=== PATIENT | male | born 1970 | race Caucasian/White ===

== ENCOUNTER 2025-02-22 02:57 | Inpatient (IN) | payer OTHER, SELFPAY ==
[2025-02-21 20:35] VITALS: BP 134/71; BMI 25.5
--- NOTE | 2025-02-21 21:00 | ED.GENMED ---
History of Present Illness
<Atif Xiong PA-C - Last Filed: 02/22/25 01:01>
General
Chief Complaint: Breathing Problem
Source: patient and records
Time Seen by Provider: 02/21/25 20:33
History of Present Illness
History of Present Illness:
54-year-old male with past medical history of substance abuse and anxiety presenting to the ER with correctional officers for evaluation of a multitude of concerns including questionable fevers, cough, back pain, altered mental status/confusion,
lethargy and generalized weakness with symptoms potentially starting within the last 24 to 48 hours. Patient very difficult to obtain history from, continuously stating his back hurts and he would like some water to drink. Records from the [facility]
show that patient had a chest x-ray done today which showed a questionable left-sided pneumonia. It also notes that patient was found laying in the cell, feces all around him and refusing to get out of bed due to the weakness. It was also noted in
the patient's record that he has a history of heroin abuse, patient denies IV drug abuse but records state patient does have a history of this. Last use was reportedly 2 days ago based off of the record, patient stating that 1 year ago.
Past History
<Atif Xiong PA-C - Last Filed: 02/22/25 01:01>
Past History
ED Past Medical History: Psychiatric and Other (Kidney stones)
ED Past Surgical History: None
Social History
Tobacco: Former smoker
Alcohol: None
Drug: Narcotics and IVDA
Personal: Single
Living: [facility]
Review of Systems
<Atif Xiong PA-C - Last Filed: 02/22/25 01:01>
Review of Systems
All Other Systems: ROS reviewed and negative except as documented in HPI and ROS
Phy Exam
<Atif Xiong PA-C - Last Filed: 02/22/25 01:01>
Physical Exam
Physical Exam:
GENERAL: Alert , appears older than stated age, ill-appearing but nontoxic
HEAD: Normocephalic atraumatic
EYE: Clear conjunctiva
NECK: Supple
ENT: o/p clr, mmm.
CARDIAC: Tachycardic rate and rhythm, no murmur
LUNGS: Clear breath sounds bilaterally, tachypneic but no accessory muscle use, no wheezes/rales/rhonchi
ABDOMEN: Soft, without focal tenderness, no r/g, no cvat
NEUROLOGICAL: Alert and oriented
SKIN: Cold to the touch and dry, skin intact.
MUSCULOSKELETAL: No edema, well perfused. Easily palpable pedal and tibial pulses
PSYCH: Normal and appropriate interaction.
Scores
<Atif Xiong PA-C - Last Filed: 02/22/25 01:01>
Heart Failure Risk
Heart Failure Risk Score: Not Applicable
Heart Score for Chest Pain Patients
STEMI patient?: Not applicable
Withdrawal Assessment of Alcohol
Withdrawal Assessment Completed?: Not applicable
Sepsis
<Atif Xiong PA-C - Last Filed: 02/22/25 01:01>
Sepsis Screening
Sepsis Assessment: Septic Shock
Sepsis Screening: Lactate >2mmol/L, Lactate >/=4mmol/L and ARF-Creatinine >2.0
Sepsis Screen
Sepsis Screen: Septic Shock
Date: 02/22/25
Time: 01:01
<Isaiah Shannon MD - Last Filed: 02/23/25 09:43>
Sepsis Screen
Sepsis Screen: Septic Shock
Date: 02/23/25
Time: 09:43
Course
<Atif Xiong PA-C - Last Filed: 02/22/25 01:01>
Orders/Labs/Results
Orders:
Orders
02/21/25 20:39
Electrocardiogram (*1) Urgent
Reason for Study: Shortness of Breath
EKG- Treatment ONCE
02/21/25 21:31
CR Chest Portable - 1 View Urgent
Comment:
Reason For Exam: hypothermia, cough
Reason Study Needs to be Portable: Patient Unstable
02/21/25 21:54
Basic Metabolic Panel Urgent
COVID-19 Antigen Urgent
Source: Nasal Swab
Complete Blood Count/With Diff Urgent
Lactic Acid Q4H
Comment: CANCEL 2nd LACTIC ACID IF 1st LACTIC ACID IS LESS THAN 2
NT-proBNP Urgent
Procalcitonin Urgent
PCT Algorithmm Indication: Respiratory
Troponin I Urgent
Blood Culture Q30M
DIEGO Source: Blood/Venous
Specimen Description:
Blood Culture Q30M
DIEGO Source: Blood/Venous
Specimen Description:
Influenza A+B Rapid Molecular Urgent
DIGEO Source: Nasal Swab
Specimen Description:
02/21/25 22:30
Piperacillin/Tazo 3.375 Gram [Zosyn] 3.375 gram in 50 ml IV NOW
02/21/25 22:31
0.9% Sodium Chloride 1000 ml [Nss] 2,400 ml IV NOW STA
02/21/25 23:06
Vancomycin [Vancocin] 2,000 mg 0.9% Sodium Chloride 500 ml [Nss] 500 ml IV NOW
02/21/25 23:35
Free T4 Urgent
TSH Reflex To Free T4 Urgent
Urinalysis Reflex To Culture Urgent
Date Specimen was Collected: 02/21/25
Time Specimen was Collected: 23:33
Urine Drug Abuse Screen Urgent
Date Specimen was Collected: 02/21/25
Time Specimen was Collected: 23:33
Urine Microscopic Reflex Cult Urgent
Venous Blood Gas Urgent
%Oxygen/Room Air: RA
Urine Culture Urgent
DIEGO Source: U
Specimen Description:
Date Specimen was Collected: 02/21/25
Time Specimen was Collected: 23:33
02/22/25 00:02
CT Abd/pel Without Iv Or Oral Urgent
Reason For Exam: Abd Pain, Sepsis, JOVAN
02/22/25 00:55
Lactic Acid Q4H
Comment: CANCEL 2nd LACTIC ACID IF 1st LACTIC ACID IS LESS THAN 2
02/22/25 02:30
Admit/Transfer Patient As Directed
Co-Sign Provider:
Level of Care: Inpatient admission
Assign to:: ICU
Physician / Group: Chirag
Diagnosis: Lactic Acidosis, Cirrhosis / Ascites
Reason for Hospitalization: Lactic Acidosis, Cirrhosis / Ascites
Expected length of stay greater than two midnights?: Yes
ELOS- Estimated Length of Stay in days: 4
I certify the patient meets the requirements for IP care: Yes
Code Status As Directed
Resuscitation Status: Full Code
PRN Pain Medication Management As Directed
May give lesser potent ordered pain med per pt: Yes
preference::
Protocol:: Medication orders for pain may be administered in a
manner that supports deferring to patient preference
when the pt is:
- Requesting an ordered lesser potent pain medication.
Least to most potent pain medications are defined
as: acetaminophen < NSAID < tramadol < opioids
(morphine, oxycodone, hydromorphone).
- Requesting a lesser dose of the same medication IF
ORDERED.
- Requesting a less intrusive route of administration
if both routes are prescribed by the provider (PO <
IV).
02/22/25 03:44
Ondansetron Injectable [Zofran] 4 mg IV Q6HPRN PRN
Polyethylene Glycol Powder [Miralax] 17 grams PO DAILY PRN
Sterile Water For Inj [Sterile Water For Injection 1000 ml] 1,000 ml Sodium Bicarbonate 150 meq IV 150 mls/hr
02/22/25 03:44
Echo 2D MMode Doppler [Echo 2D MMode Color/Doppler] Routine
Reason for Study: Ascites / Edema
Consult Notification Routine
Specialty to Notify: Gastroenterology
Date consulting provider notified: 02/22/25
Time consulting provider notified: 07:31
Notified:: Provider
Consult Notification Routine
Specialty to Notify: IRAD (Interventional Radiology)
Date consulting provider notified: 02/22/25
Time consulting provider notified: 07:30
Notified:: Provider
GASTROINTESTINAL CONSULT Routine
Consulting Provider: Acacia Pelayo
Was physician already notified: No
Reason for consult: Cirrhosis / Ascites
IRAD CONSULT Routine
Consulting Provider: Chase Cross
Was physician already notified: No
Reason for Consult/Procedure: Ascites / Paracentesis
Acknowledgement that appropriate orders are entered: Yes
Activity As Directed
Activity Level: Ambulate
With Assistance
Bladder Scan As Directed
Follow Bladder Retention/Intermittent Cath Algorithm?: Yes
PRN if no void in __ hours: 6
Frequency: Per Retention Algorithm
If Bladder Scan Result >: 400
then:: Straight cath
EKG with chest pain [ECG as needed] As Directed
ECG as needed for:: Chest Pain
Hemetest Stools As Directed
I/O [Intake/ Output] As Directed
Frequency: Per unit guidelines
Straight Cath As Directed
Frequency: Per Retention Algorithm
Additional Instructions: straight cath as needed per acute urinary retention algorithm for 24 hrs
Additional Instructions: for bladder scan greater than 400 mL
Vital Signs As Directed
Frequency: Per unit guidelines
Weight As Directed
Frequency: Daily
IRAD Cytology Routine
Date Specimen was Collected: 02/22/25
Source: Peritoneal Fluid
Clinical Impression: Ascites
Oxygen Therapy [O2 Therapy] [RESP] Routine
Titrate/Wean O2 to maintain O2 sat greater than (%): 94
DX Deep Vein Thrombosis Video Routine
02/22/25 04:13
Ammonia IN AM
Cardiovascular Evaluation IN AM
Complete Blood Count/No Diff IN AM
Glycohemoglobin (HgbA1c) Routine
Iron Routine
Lactic Acid IN AM
Total Iron Binding Routine
Troponin I Q6H
02/22/25 06:00
CefTRIAXone [Rocephin] 2,000 mg IV Q24H
02/22/25 07:42
Ferritin Routine
02/22/25 08:00
Docusate Sodium [Colace] 100 mg PO BID
Heparin 5,000 units SC Q12
Pantoprazole [Protonix IV] 40 mg IV DAILY
02/22/25 09:35
Fluid Culture with Gram Stain Routine
DIEGO Source: Peritoneal Fluid
Specimen Description:
Date Specimen was Collected: 02/22/25
Time Specimen was Collected: 09:20
Comment: Post Procedure
02/22/25 11:28
Troponin I Q6H
02/22/25 15:30
Troponin I Q6H
02/22/25 22:00
Sennosides [Senokot] 17.2 mg PO HS
Abnormal Lab Results
02/21/25 02/21/25 02/22/25
21:54 23:35 00:55
RBC 4.69 L 10^6/uL
(4.70-6.10)
Hgb 9.1 L g/dL
(13.0-18.0)
Hct 31.9 L %
(39.0-52.0)
MCV 68.0 L fL
(80.0-94.0)
MCH 19.4 L pg
(27.0-31.0)
MCHC 28.5 L g/dL
(33.0-37.0)
RDW 19.1 H %
(11.5-14.5)
Plt Count 438 H 10^3/uL
(130-400)
Abs Immat Gran (auto) 0.1 H 10^3/uL
(0-0.05)
Absolute Neuts (auto) 7.8 H 10^3/uL
(1.4-6.5)
Absolute Lymphs (auto) 0.7 L 10^3/uL
(1.2-3.4)
Absolute Monos (auto) 0.8 H 10^3/uL
(0.1-0.6)
Immature Gran % 0.7 H %
(0-0.5)
Neutrophils % 83.3 H %
(42.2-75.2)
Lymphocytes % 7.3 L %
(20.5-51.1)
VBG pH 7.11 L*
(7.32-7.43)
VBG pCO2 29 L mmHg
(35-48)
VBG HCO3 9.2 L mmol/L
(22-27)
Sodium 133 L mmol/L
(135-145)
Potassium 5.8 H mmol/L
(3.5-5.1)
Carbon Dioxide 9 L* mmol/L
(22-30)
BUN 65 H mg/dl
(9-20)
Creatinine 3.9 H mg/dL
(0.7-1.3)
Glucose 172 H mg/dl
(70-99)
Lactic Acid 8.1 H* mmol/L 8.0 H* mmol/L
(0.7-2.0) (0.7-2.0)
Troponin I 0.183 H* ng/ml
TSH (Reflex) 9.77 H uIU/ml
(0.47-4.68)
Ur Occult Blood Reflex 3+ A
(Negative)
Urine WBC (Reflex) 40-50 A /HPF
(0-5)
Urine Bacteria (Reflex) Many A
(Negative)
Urine Albumin (Reflex) 4+ A
(Neg - Trace)
02/21/25 21:54
02/21/25 21:54
Vital Signs
Initial and Last Documented VS:
Initial Vital Signs
Pulse Resp BP Pulse Ox
114 26 134/71 95
02/21/25 20:35 02/21/25 20:35 02/21/25 20:35 02/21/25 20:35
Last Documented Vital Signs
Temp Pulse Resp BP Pulse Ox
98.1 F 83 25 115/51 99
02/23/25 07:40 02/23/25 07:35 02/23/25 07:35 02/23/25 07:35 02/23/25 09:27
Patient Financial Representative consulted with Physician
Patient Financial Representative consulted with physician?: Yes
Name of Physician Consulted: Mirtha
<Isaiah Shannon MD - Last Filed: 02/23/25 09:43>
Orders/Labs/Results
Orders:
Orders
02/21/25 20:39
Electrocardiogram (*1) Urgent
Reason for Study: Shortness of Breath
EKG- Treatment ONCE
02/21/25 21:31
CR Chest Portable - 1 View Urgent
Comment:
Reason For Exam: hypothermia, cough
Reason Study Needs to be Portable: Patient Unstable
02/21/25 21:54
Basic Metabolic Panel Urgent
COVID-19 Antigen Urgent
Source: Nasal Swab
Complete Blood Count/With Diff Urgent
Lactic Acid Q4H
Comment: CANCEL 2nd LACTIC ACID IF 1st LACTIC ACID IS LESS THAN 2
NT-proBNP Urgent
Procalcitonin Urgent
PCT Algorithmm Indication: Respiratory
Troponin I Urgent
Blood Culture Q30M
DIEGO Source: Blood/Venous
Specimen Description:
Blood Culture Q30M
DIEGO Source: Blood/Venous
Specimen Description:
Influenza A+B Rapid Molecular Urgent
DIEGO Source: Nasal Swab
Specimen Description:
02/21/25 22:30
Piperacillin/Tazo 3.375 Gram [Zosyn] 3.375 gram in 50 ml IV NOW
02/21/25 22:31
0.9% Sodium Chloride 1000 ml [Nss] 2,400 ml IV NOW STA
02/21/25 23:06
Vancomycin [Vancocin] 2,000 mg 0.9% Sodium Chloride 500 ml [Nss] 500 ml IV NOW
02/21/25 23:35
Free T4 Urgent
TSH Reflex To Free T4 Urgent
Urinalysis Reflex To Culture Urgent
Date Specimen was Collected: 02/21/25
Time Specimen was Collected: 23:33
Urine Drug Abuse Screen Urgent
Date Specimen was Collected: 02/21/25
Time Specimen was Collected: 23:33
Urine Microscopic Reflex Cult Urgent
Venous Blood Gas Urgent
%Oxygen/Room Air: RA
Urine Culture Urgent
DIEGO Source: U
Specimen Description:
Date Specimen was Collected: 02/21/25
Time Specimen was Collected: 23:33
02/22/25 00:02
CT Abd/pel Without Iv Or Oral Urgent
Reason For Exam: Abd Pain, Sepsis, JOVAN
02/22/25 00:55
Lactic Acid Q4H
Comment: CANCEL 2nd LACTIC ACID IF 1st LACTIC ACID IS LESS THAN 2
02/22/25 02:30
Admit/Transfer Patient As Directed
Co-Sign Provider:
Level of Care: Inpatient admission
Assign to:: ICU
Physician / Group: Chirag
Diagnosis: Lactic Acidosis, Cirrhosis / Ascites
Reason for Hospitalization: Lactic Acidosis, Cirrhosis / Ascites
Expected length of stay greater than two midnights?: Yes
ELOS- Estimated Length of Stay in days: 4
I certify the patient meets the requirements for IP care: Yes
Code Status As Directed
Resuscitation Status: Full Code
PRN Pain Medication Management As Directed
May give lesser potent ordered pain med per pt: Yes
preference::
Protocol:: Medication orders for pain may be administered in a
manner that supports deferring to patient preference
when the pt is:
- Requesting an ordered lesser potent pain medication.
Least to most potent pain medications are defined
as: acetaminophen < NSAID < tramadol < opioids
(morphine, oxycodone, hydromorphone).
- Requesting a lesser dose of the same medication IF
ORDERED.
- Requesting a less intrusive route of administration
if both routes are prescribed by the provider (PO <
IV).
02/22/25 03:44
Ondansetron Injectable [Zofran] 4 mg IV Q6HPRN PRN
Polyethylene Glycol Powder [Miralax] 17 grams PO DAILY PRN
Sterile Water For Inj [Sterile Water For Injection 1000 ml] 1,000 ml Sodium Bicarbonate 150 meq IV 150 mls/hr
02/22/25 03:44
Echo 2D MMode Doppler [Echo 2D MMode Color/Doppler] Routine
Reason for Study: Ascites / Edema
Consult Notification Routine
Specialty to Notify: Gastroenterology
Date consulting provider notified: 02/22/25
Time consulting provider notified: 07:31
Notified:: Provider
Consult Notification Routine
Specialty to Notify: IRAD (Interventional Radiology)
Date consulting provider notified: 02/22/25
Time consulting provider notified: 07:30
Notified:: Provider
GASTROINTESTINAL CONSULT Routine
Consulting Provider: Acacia Pelayo
Was physician already notified: No
Reason for consult: Cirrhosis / Ascites
IRAD CONSULT Routine
Consulting Provider: Chase Cross
Was physician already notified: No
Reason for Consult/Procedure: Ascites / Paracentesis
Acknowledgement that appropriate orders are entered: Yes
Activity As Directed
Activity Level: Ambulate
With Assistance
Bladder Scan As Directed
Follow Bladder Retention/Intermittent Cath Algorithm?: Yes
PRN if no void in __ hours: 6
Frequency: Per Retention Algorithm
If Bladder Scan Result >: 400
then:: Straight cath
EKG with chest pain [ECG as needed] As Directed
ECG as needed for:: Chest Pain
Hemetest Stools As Directed
I/O [Intake/ Output] As Directed
Frequency: Per unit guidelines
Straight Cath As Directed
Frequency: Per Retention Algorithm
Additional Instructions: straight cath as needed per acute urinary retention algorithm for 24 hrs
Additional Instructions: for bladder scan greater than 400 mL
Vital Signs As Directed
Frequency: Per unit guidelines
Weight As Directed
Frequency: Daily
IRAD Cytology Routine
Date Specimen was Collected: 02/22/25
Source: Peritoneal Fluid
Clinical Impression: Ascites
Oxygen Therapy [O2 Therapy] [RESP] Routine
Titrate/Wean O2 to maintain O2 sat greater than (%): 94
DX Deep Vein Thrombosis Video Routine
02/22/25 04:13
Ammonia IN AM
Cardiovascular Evaluation IN AM
Complete Blood Count/No Diff IN AM
Glycohemoglobin (HgbA1c) Routine
Iron Routine
Lactic Acid IN AM
Total Iron Binding Routine
Troponin I Q6H
02/22/25 06:00
CefTRIAXone [Rocephin] 2,000 mg IV Q24H
02/22/25 07:42
Ferritin Routine
02/22/25 08:00
Docusate Sodium [Colace] 100 mg PO BID
Heparin 5,000 units SC Q12
Pantoprazole [Protonix IV] 40 mg IV DAILY
02/22/25 09:35
Fluid Culture with Gram Stain Routine
DIEGO Source: Peritoneal Fluid
Specimen Description:
Date Specimen was Collected: 02/22/25
Time Specimen was Collected: 09:20
Comment: Post Procedure
02/22/25 11:28
Troponin I Q6H
02/22/25 15:30
Troponin I Q6H
02/22/25 22:00
Sennosides [Senokot] 17.2 mg PO HS
Abnormal Lab Results
02/21/25 02/21/25 02/22/25
21:54 23:35 00:55
RBC 4.69 L 10^6/uL
(4.70-6.10)
Hgb 9.1 L g/dL
(13.0-18.0)
Hct 31.9 L %
(39.0-52.0)
MCV 68.0 L fL
(80.0-94.0)
MCH 19.4 L pg
(27.0-31.0)
MCHC 28.5 L g/dL
(33.0-37.0)
RDW 19.1 H %
(11.5-14.5)
Plt Count 438 H 10^3/uL
(130-400)
Abs Immat Gran (auto) 0.1 H 10^3/uL
(0-0.05)
Absolute Neuts (auto) 7.8 H 10^3/uL
(1.4-6.5)
Absolute Lymphs (auto) 0.7 L 10^3/uL
(1.2-3.4)
Absolute Monos (auto) 0.8 H 10^3/uL
(0.1-0.6)
Immature Gran % 0.7 H %
(0-0.5)
Neutrophils % 83.3 H %
(42.2-75.2)
Lymphocytes % 7.3 L %
(20.5-51.1)
VBG pH 7.11 L*
(7.32-7.43)
VBG pCO2 29 L mmHg
(35-48)
VBG HCO3 9.2 L mmol/L
(22-27)
Sodium 133 L mmol/L
(135-145)
Potassium 5.8 H mmol/L
(3.5-5.1)
Carbon Dioxide 9 L* mmol/L
(22-30)
BUN 65 H mg/dl
(9-20)
Creatinine 3.9 H mg/dL
(0.7-1.3)
Glucose 172 H mg/dl
(70-99)
Lactic Acid 8.1 H* mmol/L 8.0 H* mmol/L
(0.7-2.0) (0.7-2.0)
Troponin I 0.183 H* ng/ml
TSH (Reflex) 9.77 H uIU/ml
(0.47-4.68)
Ur Occult Blood Reflex 3+ A
(Negative)
Urine WBC (Reflex) 40-50 A /HPF
(0-5)
Urine Bacteria (Reflex) Many A
(Negative)
Urine Albumin (Reflex) 4+ A
(Neg - Trace)
02/21/25 21:54
02/21/25 21:54
Vital Signs
Initial and Last Documented VS:
Initial Vital Signs
Pulse Resp BP Pulse Ox
114 26 134/71 95
02/21/25 20:35 02/21/25 20:35 02/21/25 20:35 02/21/25 20:35
Last Documented Vital Signs
Temp Pulse Resp BP Pulse Ox
98.1 F 83 25 115/51 99
02/23/25 07:40 02/23/25 07:35 02/23/25 07:35 02/23/25 07:35 02/23/25 09:27
<Atif Xiong PA-C - Last Filed: 02/22/25 01:01>
MDM/Problems Addressed
Differential Diagnosis Includes:
Pneumonia, COVID, flu, substance withdrawal, given the suspected history of IV drug abuse and reported back pain question abscess/osteomyelitis/discitis
MDM/Problems Addressed:
54-year-old male presenting to the ER from [facility] for multitude of concerns, questionable pneumonia on x-ray today. Patient arrives to the ER tachycardic and tachypneic but pulse ox is within normal limits. He is very cold to the touch but
refusing to let us take a temperature. Will apply Janak hugger for possible hypothermia. Infectious workup initiated. Plan for admission. Patient has very poor IV access, waiting for IV team, labs delayed due to this.
<Atif Xiong PA-C - Last Filed: 02/22/25 01:01>
*Radiology
Radiology exam reviewed: preliminary read by ED provider (Suspected right sided infiltrate)
*Pulse Oximetry
Patient hypoxic: no
*EKG
Interpreted by ED Provider?: Yes
Heart Rate: 113
Rate: tachycardiac
Rhythm: sinus
[place]: left axis deviation
Ischemia: no ischemia
*Schedule Clerk Interpretation
Rate: tachycardiac
Rhythm: sinus
*Critical Care Note
Total Time (30-74mins, 75-104mins- exclusive of procedures): 30
comment:
Critical care statement: A total of 30 minutes of critical care time was provided for this patient. This includes management of unstable vital signs, evaluation of the patient at bedside, reviewing the patient's pertinent medical records, discussion
with consultants, review of old EKGs and review of pertinent medical records. This time with separate from time utilized to perform the aforementioned documented procedures
<Atif Xiong PA-C - Last Filed: 02/22/25 01:01>
Patient Management
Discussion with other providers: Hospitalist
Escalation/DeEscalation of care consider admission/obs:
Patient's labs reveal significant abnormalities including lactic acid of 8.1, bicarb of 9, acute kidney injury with a creatinine of 3.9, troponin of 0.183 and a BNP of greater and 27,000. Significant concern for septic shock likely causing
significant endorgan dysfunction. Sepsis fluids and IV antibiotics ordered. At this time patient is maintaining his blood pressure and does not require pressor support. Hospitalist team notified who accepts patient for continued evaluation and
treatment.
ED Attending Note
<Atif Xiong PA-C - Last Filed: 02/22/25 01:01>
-
Portions of this chart may have been created with voice recognition software.� Occasional wrong word or��sound alike� substitutions may have occurred due to the inherent limitations of voice recognition software.
<Isaiha Shanonn MD - Last Filed: 02/23/25 09:43>
ED Attending Note
Patient seen and examined by attending physician: Yes
ED Attending Note:
Patient presents to ED from [facility] secondary to 2-day history of cough, fever, body ache, and 'not feeling well'. Patient has history of substance abuse and anxiety disorder. Patient is an ex smoker. Denies vomiting or
diarrhea. Denies headache. Denies rash. Patient states that he feels as though he has 'pneumonia'.
Physical Exam
General: mild distress, ill appearing. tachycardic. hypothermic
Head: nc/at. eomi
Neck: supple. no meningeal signs.
Heart: tachycardic. no murmur
Lungs: no acute respiratory distress. rhonchi bilaterally
Abdomen: normal bowel sounds. not tender.
Neuro: alert and oriented x 3. no focal neurological deficits
Skin: no rash
Psychiatric: well kept. interactive and cooperative
Extremities: no edema. no calf tenderness.
History, exam, blood work, and chest x-ray concerning for sepsis, likely secondary to pneumonia. Patient will be admitted for IV antibiotics and further evaluation.
Discharge Plan
Departure
Patient Disposition: Admit
Date of Disposition: 02/21/25
Time of Disposition: 22:41
Presentation/result/management discussed w/ accepting MD/DO: Hospitalist
Discharge Problem:
Septic shock, Acute non-ST elevation myocardial infarction (NSTEMI), JOVAN (acute kidney injury), Pneumonia
Interventions
Interventions:
*Risk Screen - Suicide Last Done: 02/21/25 20:35
*General Assessment Last Done: 02/21/25 20:35
*Neglect/Abuse Screening Last Done: 02/21/25 23:50
*ED- Fall Risk Assessment Last Done: 02/21/25 23:33
*ED COVID-19 Vaccine History Last Done: 02/21/25 23:33
*Nursing Disposition Last Done: 02/22/25 03:39
ED- Cardiac Assessment Last Done: 02/21/25 21:26
ED- Pulmonary Assessment Last Done: 02/21/25 21:26
Discharge Date and Time
Discharge Date/Time: 02/22/25 03:40
[2025-02-21 21:18] VITALS: BP 120/46
[2025-02-21 22:20] LABS: Hematocrit 31.9 % (39.0-52.0); Hemoglobin 9.1 g/dL (13.0-18.0); Mean Corp Hgb Conc. 28.5 g/dL (33.0-37.0); Mean Corpuscular Hgb 19.4 pg (27.0-31.0); Mean Platelet Volume 9.3 fL (7.4-10.4); Platelet Count 438 10^3/uL (130-400); Red Blood Cell Count 4.69 10^6/uL (4.70-6.10); Red Cell Dist. Width 19.1 % (11.5-14.5); White Blood Cell Count 9.4 10^3/uL (4.8-10.8)
[2025-02-21 22:21] LABS: Lactic Acid 8.1 mmol/L (0.7-2.0)
[2025-02-21 22:25] LABS: COVID-19 Antigen Negative (Negative)
[2025-02-21 22:35] LABS: Procalcitonin 0.24 ng/ml (0.0-0.25)
[2025-02-21 22:36] LABS: Blood Urea Nitrogen 65 mg/dl (9-20); Calcium 8.4 mg/dl (8.4-10.2); Carbon Dioxide 9 mmol/L (22-30); Chloride 104 mmol/L (98-107); Estimated Creatinine Clearance 22 ml/min; Glucose 172 mg/dl (70-99); NT-proBNP > 27000 pg/ml; Potassium 5.8 mmol/L (3.5-5.1); Sodium 133 mmol/L (135-145); Troponin I 0.183 ng/ml; eGFR 17.47
[2025-02-21] MEDS: NSS 2400 ML IV (22:48)
[2025-02-21] MEDS: ZOSYN 50 IV (22:48)
[2025-02-21 22:51] LABS: % Basophils 0.2 % (0-2); % Immature Granulocytes 0.7 % (0-0.5); % Lymphocytes 7.3 % (20.5-51.1); % Monocytes 8.5 % (1.7-9.3); % Neutrophils 83.3 % (42.2-75.2); Absolute Immature Granulocytes 0.1 10^3/uL (0-0.05); Absolute Lymphocytes 0.7 10^3/uL (1.2-3.4); Absolute Monocytes 0.8 10^3/uL (0.1-0.6); Absolute Neutrophils 7.8 10^3/uL (1.4-6.5); Normal RBC Morphology No; Nucleated Red Blood Cells % 11.4 % (-)
[2025-02-21 22:52] LABS: Anisocytosis 2+; Hypochromasia 2+; Macrocytosis 2+; Ovalocytes 1+; Polychromasia Occasional; Target Cells Occasional; Tear Drop Red Blood Cells 1+
[2025-02-21 22:53] VITALS: BP 144/64
[2025-02-21 23:00] VITALS: BP 138/64
[2025-02-21] MEDS: VANCOCIN 540 MG IV (23:28)
[2025-02-21 23:56] LABS: Venous Blood Gas B.E. -18.9 mmol/L (-4 to +4); Venous Blood Gas HCO3 9.2 mmol/L (22-27); Venous Blood Gas O2 Sat % 63.4 %; Venous Blood Gas pCO2 29 mmHg (35-48); Venous Blood Gas pO2 46 mmHg (30-50)
[2025-02-21 23:59] LABS: Venous Blood Gas pH 7.11 (7.32-7.43)
[2025-02-22] VITALS (84 sets, daily range): BP systolic 84–137; BP diastolic 46–98; BMI 25.4
[2025-02-22 00:10] LABS: Urine Albumin 4+ (Neg - Trace); Urine Bilirubin Negative (Negative); Urine Character Clear (Clear); Urine Color Amber; Urine Glucose Negative (Negative); Urine Ketone Negative (Negative); Urine Leukocyte Negative (Negative); Urine Nitrite Negative (Negative); Urine Occult Blood 3+ (Negative); Urine Urobilinogen Negative (Neg - 1+)
[2025-02-22 00:28] LABS: Amphetamines Negative (Negative); Barbiturates Negative (Negative); Benzodiazepines Negative (Negative); Buprenorphine Negative (Negative); Cocaine Negative (Negative); Marijuana Negative (Negative); Methadone Negative (Negative); Methamphetamines Negative (Negative); Opiates Negative (Negative); Phencyclidine Negative (Negative); Tricyclic Antidepressants Negative (Negative)
[2025-02-22 00:48] LABS: Urine Amorphous Seen; Urine Bacteria Many (Negative); Urine Hyaline Cast >15 /LPF (0-2); Urine Mucus Many; Urine Squamous Cell >30 /LPF (Few)
[2025-02-22 00:50] LABS: Urine White Cell 40-50 /HPF (0-5)
[2025-02-22 00:55] LABS: TSH Reflex To Free T4 9.77 uIU/ml (0.47-4.68)
[2025-02-22 01:23] LABS: Free T4 1.19 ng/dl (0.78-2.19)
--- NOTE | 2025-02-22 02:37 | HPS.HSE ---
Family Physician
-
Family Physician: [facility]
Chief Complaint
-
Confusion, Weakness
History of Present Illness
Patient is a 54y M with PMH significant for IVDA and Hep C who presents to ED complaining of back pain, weakness, etc. Extremely difficult history from patient who answers 'no' to majority of questions - oft times before the question is even
completed. History from [facility] reports recent cough and patient started on Z-pack a few days ago for concern for pneumonia by outpatient CXR. Today he was found lying on the floor in his cell, naked and covered in feces. He refused to get up and
complained of weakness. He was brought to the ED for evaluation. Since arrival here he has complained of 'dying of thirst' and occasionally back pain.
He denies any recent drug use and any prior h/o alcohol use disorder.
He has prior h/o IV heroin use - last use > 1 year ago.
He does admit to prior history of Hep C infection. Jail records state this was treated in the past, but patient denies any prior treatment for his Hep C.
He denies any issues with urination. He does report recent cough.
In the ED patient is awake, alert and restless at times. His BP has been normal / stable throughout his ED stay.
Medical History
Past Medical History
Past Medical History: Reports Other
Additional Past Medical History:
Hep C - ? prior treatment
Substance Abuse
Past Surgical History: Reports None
Social History
Tobacco: Former Smoker
Alcohol: None
Drug: Former User (Clean for > 1 year per patient. IV heroin / fentanyl prior to that.)
Family History
Family History: Not pertinent
Allergies / Home Medications
Allergies reflects when Allergies were last updated in [facility].
Home Medications with original date entered in [facility]
Allergy/Medication List:
Allergies
Allergy/AdvReac Type Severity Reaction Status Date / Time
No Known Allergies Allergy Unverified 04/27/12 12:08
Home Medications
azithromycin 250 mg tablet 250 mg PO DAILY 02/22/25
erythromycin 5 mg/gram (0.5 %) eye ointment 0.5 inch ophthalmic (eye) TID 02/22/25
furosemide 20 mg tablet 20 mg PO DAILY 02/22/25
Review of Systems
-
History Source: Patient
A 12 point ROS was completed and negative except as noted: Yes
Constitutional: Reports Fatigue and Chills; Denies Fever
EENT: Denies Sore Throat
Respiratory: Reports Cough; Denies Trouble Breathing
Cardiac: Denies Chest Pain or Palpitations
Abdomen/GI: Reports Abdominal Pain and Constipated; Denies Nausea, Vomiting, Diarrhea, Bloody Stools or Black Stools
: Denies Dysuria, Frequency or Flank Pain
Musculoskeletal: Denies Joint Pain or Edema
Neurological: Denies Dizzy or Headache
Psych: Denies Depression or Anxiety
Physical Exam
Vital Signs
Vital Signs
Temp Pulse Resp BP Pulse Ox
95 F L 107 29 136/98 99
02/21/25 22:49 02/22/25 02:15 02/22/25 02:15 02/22/25 01:14 02/21/25 21:30
Physical Exam
General: Other (Chronically ill-appearing 54y M who appears much older than his stated age.)
HEENT: Other (Dry MM. Neck supple. Poor dentition.)
Respiratory: Other (Few bibasilar rales.)
Cardiac: S1/S2 and Regular Rhythm; No Murmur
GI: Other (Abdomen is distended / protuberant. No significant / focal tenderness. Pos BS.)
Musculoskeletal: No Clubbing, No Cyanosis and Other (Trace - 1+ edema at the ankles.)
Neuro: Awake, Alert and Other (Moves all extremities appropriately.)
Laboratory Results
-
02/21/25 21:54
02/21/25 21:54
Laboratory Results
Lactic Acid 8.0 mmol/L (0.7-2.0) H* 02/22/25 00:55
Troponin I 0.183 ng/ml H* 02/21/25 21:54
Impression/Plan
-
A/P: Patient is a 54y M with PMH significant for substance abuse and Hep C who presents to ED from long-term for evaluation of weakness, mental status change, fatigue.
Cirrhosis / Ascites - r/o SBP
Hyponatremia
History of Hep C
- Admit for further evaluation and treatment.
- CT done in the ED shows cirrhosis with moderate ascites. Limited study without IV contrast (JOVAN).
- IV abx with ceftriaxone for now.
- IR eval for paracentesis / fluid analysis.
- GI evaluation for additional recommendations.
- Check abdominal US.
- Will likely require diuretic regimen to manage ascites, symptoms, etc.
JOVAN
Hyperkalemia
Lactic Acidosis
- SCr = 3.9 with no prior values for comparison.
- No evidence of urinary retention, obstruction, etc on CT.
- IVF support with supplemental bicarb for now.
- Follow serial lactate levels.
- Monitor for any new symptoms, complaints, etc.
- Bladder scan protocol.
- Follow for improvement in renal function.
- Probable hepatorenal syndrome.
- Patient with total body volume overload and will likely benefit from diuresis once lactic acidosis addressed / improved.
Hypothermia
- Unclear etiology. ? related to cirrhosis.
- TFTs with moderately elevated TSH but normal T4.
- Recent cough - COVID / flu negative. Chest imaging with b/l effusions and likely associated atelectasis > pneumonia.
- Procal done in the ED was low.
- Supportive care. Follow for improvement with correction in lactic acidosis.
Abnormal Troponin - Suspect non-NC Elevation
- Trop = 0.183 on initial set. Likely secondary to acute illness / acidosis / etc.
- No chest pain or dyspnea.
- EKG with out evident ischemic changes.
- Follow troponin to peak. Monitor for any chest pain or other symptoms.
- Check Echo.
Microcytic Anemia
- Unknown acuity / etiology.
- Heme test stools, check iron studies, etc.
- Follow for changes in H&H or any evidence of gross blood loss.
DVT Prophylaxis: Subcut Heparin
Code Status: Full
[2025-02-22 03:48] LABS: Glucose - Point of Care 94 mg/dl (70-99)
--- NOTE | 2025-02-22 03:50 | W.PN.SEPSIS ---
Sepsis
Vital Signs
Temp Pulse Resp BP Pulse Ox
93.4 F L 107 29 136/98 99
02/22/25 02:41 02/22/25 02:15 02/22/25 02:15 02/22/25 01:14 02/21/25 21:30
Physical Exam
Physical Exam:
A focused exam was performed after fluid resuscitation.
Capillary Refill
Bilateral Upper Extremity:
Maria Luisa Time: Less than 3 sec
Bilateral Lower Extremity:
Maria Luisa Time: Greater than or equal to 3 sec
Pulse Evaluation
Bilateral Radial:
Pulse Evaluation: Present
Bilateral Dorsalis Pedis:
Pulse Evaluation: Present
[2025-02-22] MEDS: SODIUM BICARBONATE 1150 MEQ IV ×3 (04:24→22:10)
[2025-02-22 04:41] LABS: APTT 31.2 Sec (23.4-35.0); INR 1.78; PT 20.9 Sec (11.4-14.6)
[2025-02-22 04:45] LABS: Hematocrit 31.6 % (39.0-52.0); Hemoglobin 8.7 g/dL (13.0-18.0); Mean Corp Hgb Conc. 27.5 g/dL (33.0-37.0); Mean Corpuscular Hgb 19.1 pg (27.0-31.0); Mean Corpuscular Volume 69.5 fL (80.0-94.0); Mean Platelet Volume 9.6 fL (7.4-10.4); Platelet Count 388 10^3/uL (130-400); Red Blood Cell Count 4.55 10^6/uL (4.70-6.10); Red Cell Dist. Width 19.2 % (11.5-14.5); White Blood Cell Count 11.2 10^3/uL (4.8-10.8)
[2025-02-22 04:47] LABS: Iron 23 ug/dl (49-181)
[2025-02-22 04:49] LABS: Ammonia < 9 umol/L (9-30)
[2025-02-22 04:56] LABS: Lactic Acid 8.9 mmol/L (0.7-2.0)
[2025-02-22 04:57] LABS: Percent Saturation 6 % (20-50); Total Iron Binding Capacity 333 ug/dl (261-462)
[2025-02-22 05:00] LABS: ALT (SGPT) 508 U/L (0-50); AST (SGOT) 650 U/L (17-59); Albumin 2.5 g/dl (3.5-5.0); Alkaline Phosphatase 184 U/L (38-126); Blood Urea Nitrogen 63 mg/dl (9-20); Calcium 8.1 mg/dl (8.4-10.2); Carbon Dioxide 7 mmol/L (22-30); Chloride 107 mmol/L (98-107); Creatine Phosphokinase 309 U/L (55-170); Direct Bilirubin 0.9 mg/dl (0.0-0.4); Estimated Creatinine Clearance 22 ml/min; Glucose 131 mg/dl (70-99); HDL Cholesterol 29 mg/dl; LDL Cholesterol, Calculated 110 mg/dl; Magnesium 2.3 mg/dl (1.6-2.3); Phosphorus 9.3 mg/dl (2.5-4.5); Potassium 6.2 mmol/L (3.5-5.1); Sodium 133 mmol/L (135-145); Total Bilirubin 1.8 mg/dl (0.2-1.3); Total Cholesterol 159 mg/dl (50-199); Total Protein 5.6 g/dl (6.3-8.2); Triglyceride 100 mg/dl (10-149); Very Low Density Lipoprotein 20 mg/dl (0-30); eGFR 17.47
[2025-02-22] MEDS: DEXTROSE 50% SYRINGE 25 GRAMS IV (05:23)
[2025-02-22] MEDS: NOVOLIN R 10 UNITS IV (05:26)
--- NOTE | 2025-02-22 05:31 | PTCARENOTE ---
[id number]: Pt's BG 92. Dextrose 50% syringe 25 gr IV and insulin 10 units IV administered for K 6.2.
[2025-02-22 05:35] LABS: Glucose - Point of Care 92 mg/dl (70-99)
[2025-02-22] MEDS: ROCEPHIN 2000 MG IV (05:56)
[2025-02-22] MEDS: STERILE WATER FOR INJECTION 20 ML IV (05:56)
--- NOTE | 2025-02-22 06:25 | PTCARENOTE ---
Received patient in room 3366 yelling and screaming that he wants water. Patient is oriented to his name; otherwise, answers questions as 'NO,' or 'I DON'T KNOW.' Discussed plan of care with the patient but he was not interested in education.
Patient instead yells and screams 'I want fucking water you fucking ugly bitch. Stupid ass bitch. I want fucking waterrrrrr!' The patient then continues screaming despite multiple teachings on reasoning for not receiving water. Miranda Zabala ,
DIRECTOR INDUSTRIAL RELATIONS made aware and also explained to the patient reasoning for not receiving water. Pt has abd ultrasound in the morning, RR 33-40, HR 115, and SpO2 99-100% on room air. Rectal temp of 96.5 F. The patient then continued verbally abusing staff and
calling this RN a fucking stupid bitch as well as the OPERATIONS MANAGEMENT TRAINEE. Encouraged the patient to brush his teeth to aid in moisturization, and the patient stated 'don't be a smart ass, dumb ugly bitch.' Patient made aware of IVF fluids. Labs drawn and sent.
Janak hugger placed. Patient bladder scanned for 64 cc urine. OPERATIONS MANAGEMENT TRAINEE made aware.
[2025-02-22 07:32] LABS: Glucose - Point of Care 86 mg/dl (70-99)
[2025-02-22] MEDS: HEPARIN SC (07:35)
[2025-02-22] MEDS: PROTONIX IV 40 MG IV (07:35)
[2025-02-22] MEDS: NSS (PRESERVATIVE FREE) 10 ML IV (07:35)
[2025-02-22] MEDS: COLACE PO (07:35)
--- NOTE | 2025-02-22 08:00 | PTCARENOTE ---
Received patient from night supervisor. patient is AAOx2. unsure of date. Is agitated, screaming out, not following commands, keeps asking for water. has been verbally abusive towards staff and senior care guards. He is on room air, 100%. lungs coarse
and diminished. He is sinus tach on monitor. Bilateral soft limb wrist restraints on. Patient is NPO, has not made urine. Abdomen is distended, round. Skin assessment to be documented in worklist. Patient is refusing all care, states he
'doesn't care if he dies, he just wants water'. Will review orders, physician notified of patient's refusal.
[2025-02-22 08:01] LABS: Potassium 5.4 mmol/L (3.5-5.1)
--- NOTE | 2025-02-22 08:33 | CON.INTV ---
Consultation
Consultation Request
Date/Time Consultation Requested: 02/22/2025
Date/Time Consultation Performed: 02/22/2025
Requesting Provider: Julian Beard
Performing Provider: Claude Ibarra
Reason for Consultation: Cirrhosis
Medical History
-
Chief Complaint: Confusion, weakness
History of Present Illness:
Patient due to his encephalopathy was unable to provide me any meaningful history. Information is mostly obtained from patient's chart as well as discussion with other healthcare providers. Reportedly patient has longstanding history of IV drug
use, history of hepatitis C, unclear if he was treated for the same, presented from group home with back pain, weakness. He reportedly had some cough prior to admission and was treated with antibiotics, details unavailable. On the day of admission, he
was found on the floor in his cell, naked and covered in feces. He was refusing care and complained of weakness. He was brought to the emergency room. He was noted to have metabolic acidosis with elevated lactic acid, acute kidney injury. He was
admitted to the ICU for further evaluation.
In view of severe acidosis, elevated lactate, assessment technician service was requested for further input.
Medical History
Past Medical History
Past Medical History: Reports Other
Additional Past Medical History:
Hep C - ? prior treatment
Substance Abuse
Past Surgical History: Reports None
Social History
Tobacco: Former Smoker
Alcohol: None
Drug: Former User (Clean for > 1 year per patient. IV heroin / fentanyl prior to that.)
Family History
Family History: Not pertinent
Allergies / Home Medications
Allergies reflects when Allergies were last updated in [facility].
Home Medications with original date entered in [facility]
Allergies / Home Medications
Allergies
Allergy/AdvReac Type Severity Reaction Status Date / Time
No Known Allergies Allergy Unverified 04/27/12 12:08
Home Medications
�Medication �Instructions �Recorded �Confirmed �Last Taken �Type
azithromycin 250 mg tablet 250 mg PO DAILY 02/22/25 02/22/25 Unknown History
erythromycin 5 mg/gram (0.5 %) eye 0.5 inch ophthalmic (eye) TID 02/22/25 02/22/25 Unknown History
ointment
furosemide 20 mg tablet 20 mg PO DAILY 02/22/25 02/22/25 Unknown History
Review of Systems
-
Unable to Obtain full review of systems at this time due to: Acuity and Other (Patient intermittently combative, not able to provide any reliable history.)
Vitals / Labs / Diagnostic Testing
Vital Signs
Temp Pulse Resp BP Pulse Ox
96.5 F L 117 31 132/69 100
02/22/25 04:10 02/22/25 07:15 02/22/25 07:15 02/22/25 07:15 02/22/25 07:00
Lab Data
02/22/25 04:13
02/22/25 07:42
Laboratory Results
02/22/25
04:13
PT 20.9 H
INR 1.78
APTT 31.2
Microbiology
02/21/25 21:54 Nasal Swab Influenza Types A & B (SANDY) - Final
Negative for Influenza A & B, NAAT
Negative results must be combined with clinical observations
and patient history.
Nucleic Acid Amplification test (NAAT)performed on the
[employer] platform.
Diagnostic Testing:
Physical Exam
-
HEENT: Normocephalic
Cardiovascular: S1/S2 and Other (Tachycardic)
Respiratory: Rhonchi and Other (Respiratory rate intermittently into 30s)
GI: Distended
Neurology: Awake and Other (Not fully oriented, intermittently agitated.)
Skin: Dry
General: Respiratory Distress (Respiratory pattern varies from episodes of tachypnea to normal respiratory rate.)
Assessment
-
#1. Severe metabolic acidosis with lactic acid elevation
-Differential diagnosis is wide including spontaneous bacterial peritonitis, hepatorenal syndrome versus sepsis due to pneumonia
-Broad-spectrum antibiotic vancomycin and Zosyn
-Blood cultures, urine cultures, chest x-ray and CT abdomen pelvis reviewed. Patient needs diagnostic paracentesis for evaluation for possible SBP
-ABG, 7.1, 29.
#2. Pneumonia. Bilateral pneumonia vs atelectasis on imaging. Patient coughing and was reportedly treated with Z-pack prior to admission
-Broad spectrum antibiotics
-Blood cultures, sputum cultures, MRSA screen, Legionella and strep antigen
-Patient at risk of requiring intubation mechanical ventilation with acidosis, elevated lactate, mental status changes
-If intubated, will send tracheal aspirates
#3. Acute kidney injury with hyperkalemia. Differential diagnosis includes hepatorenal syndrome, need to rule out other etiologies including prerenal, ATN etc.
-Nephrology consult
-Continue IV fluid resuscitation, Isotonic bicarb infusion
-Albumin 100 g, 25%, stat for concern of possible pararenal syndrome
-Once additional IV access obtained, consider Tellipressin
-Diagnostic paracentesis to evaluate for SBP
-Empiric treatment for SBP including broad-spectrum antibiotics
-Check UA, urine electrolytes
#4. Acute on chronic liver injury, history of HCV related cirrhosis. Patient reports not having had a drink in more than a year.
-INR and platelets normal, ammonia normal, albumin 2.5
-Diagnostic paracentesis, bedside to evaluate for SBP
-GI service on case
#5. Bilateral pleural effusion and anasarca noted on CT. Suspect this is related to underlying cirrhosis and hypoalbuminemia
-Check echocardiogram in view of very elevated BNP as well as cardiomegaly noted on imaging
#6. Acute metabolic encephalopathy
-Patient is agitated, refuses care. Patient is acidotic with pH of 7.1, elevated lactate with acute renal failure. I do not believe patient is able to have insight into his current medical problems and able to make a sound decision. He has
multiple metabolic abnormalities contributing to his encephalopathy and his refusal of care. He is not easily directable and fluctuates from being cooperative to being agitated. I tried to explain to him the very high risk of poor outcome with
suspected liver injury as well as kidney injury.
-Check Ammonia
#7. History of polysubstance abuse, noncompliance.
-After we were allowed to contact patient's family by the officer in room, I called patient's Sister Maci, phone #[phone]. Maci told me that patient has longstanding history of noncompliance with medical treatment, has been homeless,
recent hospitalization for pneumonia. She also stated prior hospitalization for fentanyl overdose as well as prior history of heroin use. She also reported that patient has had history of aggressive behavior at times and signs out of hospitals
AGAINST MEDICAL ADVICE. She also told me that patient has expressed to her that in the event of cardiorespiratory arrest, he would not want chest compressions, shocks or resuscitation hence CODE STATUS to be changed to DNR.
Critical Care time 85 mins -- The patient is admitted for acute critical illness for the treatment of vital organ failure and/or prevention of further life-threatening conditions. Total care includes time spent in review of history, physical exam,
medications, hemodynamic/ventilator parameters, laboratory data, imaging and discussion with house staff, pharmacy, respiratory therapy, multi township assessor, and nursing. This time did not include the time spent on performing procedures.
--- NOTE | 2025-02-22 09:00 | PTCARENOTE ---
Learning And Development Intern intubated patient and respiratory at bedside.
--- NOTE | 2025-02-22 09:00 | CON.GI ---
Consultation
-
Date/Time Consultation Requested: 02/22/25343
Date/Time Consultation Performed: 02/22/25 0900
Requesting Provider: Dr. Beard
Performing Provider: Dr. Pelayo / Sima Freeman PA-C
Reason for Consultation: elevated LFTs, cirrhosis
Medical History
Chief Complaint / HPI
History of Present Illness:
This is a 54 year old male, currently incarcerated, with a past medical history of substance abuse and Hepatitis C who presented to the ED for weakness and mental status change. At the time of my evaluation, patient is sedated and intubated. CT
abdomen/pelvis showing cirrhosis, moderate ascites and anasarca. It is unclear if patient had a previous known diagnosis of cirrhosis. Also uncertain if he was treated for Hepatitis C; per review of notes, jail records indicate that he was
treated. Limited history due to sedation/intubation, however it was noted that patient was a very difficult and uncooperative historian prior to sedation. Per review of medical records, he admitted to a prior history of IV drug abuse, last used
heroin 1 year ago. Reportedly no alcohol. Upon review of labs, LFTs are elevated: Total bilirubin 1.8, direct bilirubin 0.9, AST 650, ALT 508, alk phos 194. Renal function shows JOVAN: Creatinine 3.9, BUN 63. INR 1.78. Ammonia less than 9. CBC as
follows: WBC 11.2, hemoglobin 8.7, MCV 69.5, platelets 388 and lactic acid 8.9. Patient underwent paracentesis, fluid analysis negative for SBP and shows SAAG >1.1, consistent with cirrhosis.
Past Medical History
Past Medical History: Other (substance abuse and Hepatitis C )
Past Surgical History: None
Social History
Tobacco: Former Smoker
Alcohol: None
Drug: Former User
Living: Intermediate
Family History
Family History: Unable to Obtain
Allergies / Home Medications
Allergy/AdvReac Type Severity Reaction Status Date / Time
No Known Allergies Allergy Unverified 04/27/12 12:08
�Medication �Instructions �Recorded
azithromycin 250 mg tablet 250 mg PO DAILY 02/22/25
erythromycin 5 mg/gram (0.5 %) eye 0.5 inch ophthalmic (eye) TID 02/22/25
ointment
furosemide 20 mg tablet 20 mg PO DAILY 02/22/25
Review of Systems
-
Unable to obtain full review of systems at this time due to: Patient Intubation
History Source: Other (review of medical records)
Vital Signs
Temp Pulse Resp BP Pulse Ox
96.5 F L 117 31 132/69 100
02/22/25 04:10 02/22/25 07:15 02/22/25 07:15 02/22/25 07:15 02/22/25 07:00
Physical Exam
Exam
General: Intubated
Cardiac: Regular Rhythm
GI: Soft and Distended
Skin: Other (+edema of the bilateral lower extremities )
Neuro: Sedated
Psych: Other (Now sedated/intubated; per reports had previously been noncooperative, agitated)
Results
WBC 11.2 10^3/uL (4.8-10.8) H 02/22/25 04:13
Hgb 8.7 g/dL (13.0-18.0) L 02/22/25 04:13
Hct 31.6 % (39.0-52.0) L 02/22/25 04:13
MCV 69.5 fL (80.0-94.0) L 02/22/25 04:13
Plt Count 388 10^3/uL (130-400) 02/22/25 04:13
Absolute Neuts (auto) 7.8 10^3/uL (1.4-6.5) H 02/21/25 21:54
PT 20.9 Sec (11.4-14.6) H 02/22/25 04:13
INR 1.78 02/22/25 04:13
APTT 31.2 Sec (23.4-35.0) 02/22/25 04:13
Sodium 133 mmol/L (135-145) L 02/22/25 04:13
Potassium 5.4 mmol/L (3.5-5.1) H 02/22/25 07:42
Chloride 107 mmol/L (98-107) 02/22/25 04:13
Carbon Dioxide 7 mmol/L (22-30) L* 02/22/25 04:13
BUN 63 mg/dl (9-20) H 02/22/25 04:13
Creatinine 3.9 mg/dL (0.7-1.3) H 02/22/25 04:13
Calcium 8.1 mg/dl (8.4-10.2) L 02/22/25 04:13
Total Bilirubin 1.8 mg/dl (0.2-1.3) H 02/22/25 04:13
AST 650 U/L (17-59) H* 02/22/25 04:13
ALT 508 U/L (0-50) H* 02/22/25 04:13
Alkaline Phosphatase 184 U/L (38-126) H 02/22/25 04:13
Diagnostic Image Results:
CT Abdomen/Pelvis without IV contrast 02/22/25:
1. SEVERE DIFFUSE ANASARCA.
2. Small volume of abdominal and pelvic ascites.
3. Mild hepatic cirrhosis.
4. Diffuse small bowel and colonic wall thickening.
5. Right indirect inguinal hernia containing a 10 cm peritoneal fluid collection.
6. Mild to moderate bilateral renal cortical volume loss.
7. MODERATE CARDIOMEGALY.
8. Small bilateral pleural effusions.
9. Small subpleural airspace consolidations in the lower lobes of both lungs (either pneumonia or subsegmental atelectasis).
Prior GI Procedures:
EGD:
Colonoscopy:
Assessment / Plan
-
This is a 54 year old male, currently incarcerated, with a past medical history of substance abuse and Hepatitis C who presented to the ED for weakness and mental status change. At the time of my evaluation, patient is sedated and intubated. CT
abdomen/pelvis showing cirrhosis, moderate ascites and anasarca. It is unclear if patient had a previous known diagnosis of cirrhosis. Also uncertain if he was treated for Hepatitis C; per review of notes, jail records indicate that he was
treated. Limited history due to sedation/intubation, however it was noted that patient was a very difficult and uncooperative historian prior to sedation. Per review of medical records, he admitted to a prior history of IV drug abuse, last used
heroin 1 year ago. Reportedly no alcohol. Upon review of labs, LFTs are elevated: Total bilirubin 1.8, direct bilirubin 0.9, AST 650, ALT 508, alk phos 194. Renal function shows JOVAN: Creatinine 3.9, BUN 63. INR 1.78. Ammonia less than 9. CBC as
follows: WBC 11.2, hemoglobin 8.7, MCV 69.5, platelets 388 and lactic acid 8.9. Patient underwent paracentesis, fluid analysis negative for SBP and shows SAAG >1.1, consistent with cirrhosis.
IMPRESSION / PLAN:
Cirrhosis, h/o Hepatitis C, with elevated LFTs (predominantly hepatocellular pattern)
- history of Hep C, treated per medical records from the jail
- await abdominal US
- will order hepatitis serologies
- continue to trend LFTs; unclear if related to underlying sepsis vs other
- continue monitoring renal function: JOVAN vs hepatorenal syndrome
- Ammonia level not elevated, the change in mental status likely not caused by hepatic encephalopathy
- if Hep C viral load is detected, recommend treatment (defer outpatient)
- patient will eventually need outpatient follow-up for cirrhosis for HCC surveillance, variceal screening, etc
Other medical problems managed as per Security And Compliance Project Manager and Nephrology.
-
-
Thank you for consultation and allowing me to participate in the patient's care. Please call the quality control analyst GI physician during the after hours with any questions or concerns.
[2025-02-22 09:01] LABS: Ferritin 19.5 ng/ml (17.9-464.0)
[2025-02-22] MEDS: SUBLIMAZE 50 MCG IV ×3 (09:01→12:51)
[2025-02-22 09:05] LABS: Lactic Acid 5.8 mmol/L (0.7-2.0)
--- NOTE | 2025-02-22 09:14 | W.PN.HOSP.TC ---
Today's Communication/Plan
-
now sedated and intubated
Assessment / Plan
Assessment / Plan
Patient is a 54y M with PMH significant for substance abuse and Hep C who presents to ED from [facility] for evaluation of weakness, mental status change, fatigue.
Decompensated in am and is now sedated and intubated. Emergency paracentesis planned for this am.
temp 96.5
BP 132/69
Pulse 117
1. Cirrhosis / Ascites - r/o SBP - on broad spectrum abx.
Complicated by Hyponatremia and a History of Hep C
- CT done in the ED showed cirrhosis with moderate ascites. Limited study without IV contrast (JOVAN).
- IV abx with ceftriaxone given, now broadened.
- Emergency paracentesis / fluid analysis. happening now
- GI evaluation for additional recommendations.
- Check abdominal US when available
- Will likely require diuretic regimen to manage ascites, symptoms, etc, once cause of sepsis/decompensation is found
Today AST/ALT 650/508
Scroll Machine Operator co-managing. Help appreciated.
2. JOVAN, today 63/3.9
Complicated by Hyperkalemia and Lactic Acidosis
- SCr = 3.9 with no prior values for comparison.
- No evidence of urinary retention, obstruction, etc on CT.
- IVF support with supplemental bicarb for now.
- Follow serial lactate levels.
- Monitor for any new symptoms, complaints, etc.
- Bladder scan protocol.
- Follow for improvement in renal function.
- Probable hepatorenal syndrome.
- Patient with total body volume overload and will likely benefit from diuresis once lactic acidosis addressed / improved.
3. Hypothermia - Unclear etiology. ? related to cirrhosis vs infection
- TFTs with moderately elevated TSH but normal T4.
- Recent cough - COVID / flu negative. Chest imaging with b/l effusions and likely associated atelectasis > pneumonia.
- Procal done in the ED was low.
- Supportive care. Follow for improvement with correction in lactic acidosis.
- Now intubated
4. Abnormal Troponin - Suspect non-[place] Elevation, supply/demand missmatch
- Trop = 0.183 on initial set. Likely secondary to acute illness / acidosis / etc.
- No chest pain or dyspnea.
- EKG with out evident ischemic changes.
- Follow troponin to peak. Monitor for any chest pain or other symptoms.
- Check Echo.
5. Microcytic Anemia - Unknown acuity / etiology.
- Heme test stools, check iron studies, etc.
- Follow for changes in H&H or any evidence of gross blood loss.
DVT Prophylaxis: Subcut Heparin
Code Status: Full
Sedated / intubated
Anticipated Discharge: > 48 hours
Subjective/Interval History
-
Date of Service: February 22, 2025
Patient now intubated.
Objective Data
-
Labs:
Laboratory Results
02/21/25 02/22/25 02/22/25
21:54 04:13 07:42
WBC 9.4 11.2 H
Hgb 9.1 L 8.7 L
Hct 31.9 L 31.6 L
Plt Count 438 H 388
PT 20.9 H
INR 1.78
APTT 31.2
Sodium 133 L 133 L
Potassium 5.8 H 6.2 H* 5.4 H
Chloride 104 107
Carbon Dioxide 9 L* 7 L*
BUN 65 H 63 H
Creatinine 3.9 H 3.9 H
Glucose 172 H 131 H
Calcium 8.4 8.1 L
Total Bilirubin 1.8 H
AST 650 H*
ALT 508 H*
Alkaline Phosphatase 184 H
Vital Signs:
Vital Signs
Temp Pulse Resp BP Pulse Ox
96.5 F L 117 31 132/69 100
02/22/25 04:10 02/22/25 07:15 02/22/25 07:15 02/22/25 07:15 02/22/25 07:00
I&O
02/21/25 02/22/25 02/23/25
06:59 06:59 06:59
Intake Total 150 / 250 200 / 200
Balance 150 / 250 200 / 200
Review of Systems
-
Unable to obtain full review of systems at this time due to: Patient Intubation
Physical Exam
-
General: Well Developed, Well Nourished and Appears Chronically Ill
HEENT: Normocephalic, Nose Appears Normal and Ears Appear Normal
Respiratory: Clear to Auscultation
Cardiac: S1/S2 and Tachycardic
GI: Soft
Musculoskeletal: No Clubbing, No Cyanosis and No Edema
Skin: Warm and Dry
Neuro: Sedated
Psych: Other (intubated and sedated)
Data Reviewed
-
Labs: Labs Reviewed by me
[2025-02-22 09:54] LABS: Troponin I 0.245 ng/ml
[2025-02-22 10:04] LABS: Body Fluid Albumin < 1.0 g/dl; Body Fluid Protein < 2.0 g/dl
[2025-02-22 10:20] LABS: Body Fluid Mononuclear 88 %; Body Fluid WBC 67 /CUMM
--- NOTE | 2025-02-22 10:32 | W.PN.UPDATE ---
Update Note
Progress Note Update
i was informed that patient needed to be intubated after psych consult ordered re competency to refuse rx. i have canceled consult for how. please call psych if /when you wish us to see him in the future.
[2025-02-22 10:34] LABS: Glucose - Point of Care 86 mg/dl (70-99)
[2025-02-22] MEDS: SUBLIMAZE 100 IV (10:36)
[2025-02-22 10:40] LABS: Body Fluid Second Tech HB
[2025-02-22] MEDS: DIPRIVAN 100 IV ×3 (10:42→18:47)
[2025-02-22] MEDS: ZOSYN 50 IV ×3 (11:37→21:35)
[2025-02-22 12:00] LABS: B.E. -14.5 mmol/L; PCO2 28 mmHg (35-48); PO2 256 mmHg (83-108); pH 7.23 (7.35-7.45)
[2025-02-22 12:03] LABS: HCO3 11.7 mmol/L (21-28)
[2025-02-22 12:14] LABS: Troponin I 0.402 ng/ml
[2025-02-22] MEDS: DEXTROSE 50% SYRINGE 12.5 GRAMS IV (12:30)
[2025-02-22 12:34] LABS: Glucose - Point of Care 65 mg/dl (70-99)
--- NOTE | 2025-02-22 12:44 | W.CON.NEPH ---
Consultation
-
Date/Time Consultation Requested: February at 7 AM
Date/Time Consultation Performed: February 22, 2025 at 10 AM
Requesting Provider: Dr. Beard
Performing Provider: Dr. Alex
Reason for Consultation: Acute kidney injury
Medical History
-
Chief Complaint: Acute kidney injury
History of Present Illness:
54-year-old male with past medical history of substance abuse and anxiety presenting to the ER with correctional officers for evaluation of a multitude of concerns including questionable fevers, cough, back pain, altered mental status/confusion,
Patient was found to be in acute kidney injury he was intubated only. He has a history of hepatitis C uncertain if it was treated.
Renal consult for acute kidney injury. Unable to obtain history as patient was intubated all history was from reviewing chart and discussion with the ICU team
Past Medical History
Hepatitis C former IV heroin
Social History
Drug: Former User
Family History
Family History: Not Pertinent
Allergies / Home Medications
Allergy/AdvReac Type Severity Reaction Status Date / Time
No Known Allergies Allergy Unverified 04/27/12 12:08
�Medication �Instructions �Recorded �Confirmed �Type
azithromycin 250 mg tablet 250 mg PO DAILY 02/22/25 02/22/25 History
erythromycin 5 mg/gram (0.5 %) eye 0.5 inch ophthalmic (eye) TID 02/22/25 02/22/25 History
ointment
furosemide 20 mg tablet 20 mg PO DAILY 02/22/25 02/22/25 History
Review of Systems
-
Unable to obtain full review of systems at this time due to: Patient Intubation
Physical Exam
Vital Signs
Vital Signs
Temp Pulse Resp BP Pulse Ox
98.2 F 103 27 118/81 100
02/22/25 11:50 02/22/25 11:45 02/22/25 11:45 02/22/25 11:04 02/22/25 11:57
Lab Results
WBC 11.2 10^3/uL (4.8-10.8) H 02/22/25 04:13
RBC 4.55 10^6/uL (4.70-6.10) L 02/22/25 04:13
Hgb 8.7 g/dL (13.0-18.0) L 02/22/25 04:13
Hct 31.6 % (39.0-52.0) L 02/22/25 04:13
Plt Count 388 10^3/uL (130-400) 02/22/25 04:13
Sodium 133 mmol/L (135-145) L 02/22/25 04:13
Potassium 5.4 mmol/L (3.5-5.1) H 02/22/25 07:42
Chloride 107 mmol/L (98-107) 02/22/25 04:13
Carbon Dioxide 7 mmol/L (22-30) L* 02/22/25 04:13
BUN 63 mg/dl (9-20) H 02/22/25 04:13
Creatinine 3.9 mg/dL (0.7-1.3) H 02/22/25 04:13
eGFR 17.47 02/22/25 04:13
Glucose 131 mg/dl (70-99) H 02/22/25 04:13
Calcium 8.1 mg/dl (8.4-10.2) L 02/22/25 04:13
Phosphorus 9.3 mg/dl (2.5-4.5) H 02/22/25 04:13
Dzf-A-Nczgbyaddsd Pept > 56491 pg/ml 02/21/25 21:54
Albumin 2.5 g/dl (3.5-5.0) L 02/22/25 04:13
Physical Exam
General no acute distress
HEENT ET tube
lungs rhonchi
heart regular S1-S2 positive
abdomen mild distention
extremities edema
Neurologically intubated and sedated
Data Reviewed
-
Radiology: Image Personally Visualized and interpreted
Labs: Labs Reviewed by me, Discussed with Physician and Discussed with Nurse
Assessment/Plan
-
54-year-old male with past medical history of substance abuse and anxiety presenting to the ER with correctional officers for evaluation of a multitude of concerns including questionable fevers, cough, back pain, altered mental status/confusion,
Impression.
Acute kidney injury.
Acute metabolic acidosis.
History of hepatitis C.
Hyperkalemia.
Transaminitis.
Anasarca.
Plan.
Admitting creatinine 3.9 with a potassium of 6.2 and a metabolic acidosis with a bicarb of 7.
Rule out hepatorenal syndrome though unlikely with urinalysis 4+ protein, hematuria, WBCs 40-50.
Continue with a bicarbonate drip. It has not been started yet. He was given 2 L of normal saline.
Will volume expand with bicarbonate solution hold albumin for now.
Will need to fix the metabolic acidosis and then will consider diuresing.
Pancultures.
Antibiotics.
Pressor support as indicated
I will check serologies to rule out GN. Hepatitis ordered by GI
Total Time Spent with Patient (in minutes): 35
[2025-02-22 12:58] LABS: Glucose - Point of Care 76 mg/dl (70-99)
[2025-02-22 12:58] LABS: Lactic Acid 3.2 mmol/L (0.7-2.0)
[2025-02-22] MEDS: NSS (PRESERVATIVE FREE) 1 ML IV (13:10)
[2025-02-22] MEDS: ATIVAN 2 MG IV (13:10)
[2025-02-22 13:32] LABS: Body Fluid LDH 163 U/L
--- NOTE | 2025-02-22 15:25 | OR.RPT ---
Operative Report
Operative Report
Right subclavian central venous catheter placement
Informed consent was obtained from patient's sister via phone (Maci, )
Bedside ultrasound was used to confirm patency of right subclavian vein. Under sterile condition area was subsequently cleaned and a full body drape was placed. 3 mL of lidocaine was injected locally for local anesthesia. Under sterile condition
and with an ultrasound probe in place, real-time long axis visualization and cannulation of subclavian vein was performed until blood was aspirated. Syringe was then detached and guidewire was advanced without any resistance. With guidewire in
place, needle was withdrawn. Ultrasound was used again to confirm positioning of guidewire inside the vein lumen. A small emily was placed at the skin level and a dilator was placed to about 50% of its length. Dilator was removed and a central
line catheter was threaded over the guidewire. Once catheter inserted guidewire was removed. Caps were placed on all 3 ports of central line. Sterile flushes were used to confirm withdrawal of blood and easy flushing of all 3 ports. Central
catheter was then sutured to skin and dressing was placed.
Complications: None
Blood loss: None
Chest x-ray: without any evidence of pneumothorax, central line in appropriate location.
Patient tolerated procedure well.
Performed by: Claude Ibarra MD
Date of service: 02/22/2025
--- NOTE | 2025-02-22 15:27 | OR.RPT ---
Operative Report
Operative Report
Rapid sequence intubation
Indication: Severe metabolic acidosis, elevated lactate
Preoxygenation: [id number]
Premedication: Fentanyl IV 50 mcg
Patient was placed in supine position and BVM was applied with 15 L O2. Saturations were maintained at 100%. As premedication, fentanyl IV 50 mcg was given. About a minute later induction was achieved with 30mg of etomidate followed by 50 mg of
rocuronium as paralytic. Patient was given bag valve mask ventilation while apneic. Once respiratory effort fully ceased, glide scope was used with blade #3, grade 1 view of vocal cords was obtained. 8.0, endotracheal tube was advanced without
difficulty. Positive color change was noted. ET tube was attached to ventilator. Patient maintained saturations at 100% throughout the procedure. No hypotension was observed. ET tube was then secured in place.
Complications: None
Time spent: 25 minutes
Date of service: 02/22/2025
--- NOTE | 2025-02-22 15:27 | VATNOTE ---
Late note: PICC ordered on pt. Pt currently has R midline. PICC attempted on L arm. Only vessel that was able to be visualized was the brachial vein. Brachial vein was accessed but guidewire was unable to be threaded through vessel. Second attempt
made higher in vessel with same results. No other vessels were able to be seen. PICC insertion aborted, RN aware.
[2025-02-22 15:31] LABS: Glucose - Point of Care 114 mg/dl (70-99)
--- NOTE | 2025-02-22 15:31 | OR.RPT ---
Operative Report
Operative Report
Paracentesis, Diagnostic
Indication: Metabolic acidosis, hepatorenal syndrome, concern for SBP
Consent: Patient unable to consent for procedures. As per officers in the room, required medical care to be provided. Contact with the family was not allowed initially.
Patient was placed in supine position. Bedside [id number] ultrasound was used to identify fluid pocket in right lower quadrant. Area was marked. Subsequently under sterile condition, wearing sterile gown, gloves, hat as well as a mask, area
was cleaned and a drape was placed. 1 mL of lidocaine was injected in the area and a wheal was formed. Under constant suction needle was then advanced until ascitic fluid was aspirated additional lidocaine was then injected and needle was gently
withdrawn. Paracentesis catheter was then subsequently advanced under suction. Once ascitic fluid aspirated, needle was held still and catheter was further advanced into peritoneal cavity. About 70 mL fluid was then removed and sent for cultures
and other studies. Catheter was then removed and occlusive dressing was applied. Patient tolerated the procedure well.
Complications: None
Blood loss: None
Time spent: 30 minutes
Date of service: 03/24/2025
--- NOTE | 2025-02-22 15:57 | PTCARENOTE ---
Patient now has right subclavian central line. placement verified by CXR. Pressure was lower, started levo for MAP>65. Labs sent, continuing to trend troponin and Lactic per protocol. patient was sedated with ativan for central line placement.
adjusting sedation for RASS 0- -2.
[2025-02-22 16:11] LABS: Troponin I 0.505 ng/ml
--- NOTE | 2025-02-22 16:16 | CM ---
Patient came [facility]. PMH significant for IVDA and Hep C he was complaining of back pain, weakness. History from [facility] reports recent cough and patient started on Z-pack a few days ago for concern for pneumonia by outpatient CXR. Today he
was found lying on the floor in his cell, naked and covered in feces. He refused to get up and complained of weakness. Patient has been combative and hostile to staff per nursing notes. Diagnostic w/u in progress.
# For report [phone] # fax [phone]
Plan: Case management will continue to follow and assist with discharge planning. Back to [facility] when stable.
[2025-02-22 17:39] LABS: Lactic Acid 2.8 mmol/L (0.7-2.0)
[2025-02-22 17:41] LABS: Albumin 2.1 g/dl (3.5-5.0); Alkaline Phosphatase 149 U/L (38-126); Blood Urea Nitrogen 72 mg/dl (9-20); Calcium 7.6 mg/dl (8.4-10.2); Carbon Dioxide 16 mmol/L (22-30); Chloride 104 mmol/L (98-107); Estimated Creatinine Clearance 24 ml/min; Glucose 115 mg/dl (70-99); Potassium 5.1 mmol/L (3.5-5.1); Sodium 131 mmol/L (135-145); Total Bilirubin 1.2 mg/dl (0.2-1.3); Total Protein 4.8 g/dl (6.3-8.2); eGFR 19.23
[2025-02-22 17:59] LABS: ALT (SGPT) 1398 U/L (0-50)
[2025-02-22 18:06] LABS: AST (SGOT) 2164 U/L (17-59)
[2025-02-22 18:07] LABS: Glucose - Point of Care 91 mg/dl (70-99)
[2025-02-22 18:30] LABS: B.E. -11.1 mmol/L; O2 Saturation % 93.5 % (94-98); PCO2 30 mmHg (35-48); PO2 69 mmHg (83-108); pH 7.29 (7.35-7.45)
[2025-02-22 18:31] LABS: HCO3 14.4 mmol/L (21-28)
[2025-02-22] MEDS: HEPARIN 5000 UNITS SC (20:01)
[2025-02-22] MEDS: COLACE 100 MG PO (20:01)
--- NOTE | 2025-02-22 20:10 | PTCARENOTE ---
Patient received in bed on mechanical ventilation. Pt's on propofol gtt at 30 mcg/kg/min, Fentanyl gtt at 50 mcg/hr, Levophed at 12 mcg/min, and Bicarb at 150 ml/hr. Patient assessed and lethargic. Propofol placed on hold for assessment for 20
minutes. Pt moved extremities but did not open his eyes nor follow simple commands. Grimaced with suctioning and mouth care. Pupils are +2 and sluggish. NSR on the monitor. Temp 95.5 F. Janak hugger in use. Doppler pulses to bilateral DPs and PTs.
Coarse breath sound. Pt's with #8 ETT and 23 at the lip. SpO2 at 97% on vent setting AC 25/450/+5/40%. Hypoactive BS. Pt has a temp sensing de souza catheter that's draining scant amount of yellow urine. De Souza care completed. +2 edema to pt's scrotum.
Silicone boarder foam is cdi on pt rt leg. SCD placed on the left leg.
--- NOTE | 2025-02-22 21:07 | PTCARENOTE ---
Patient's SaO2 dropped to 79%. Pt's not agitated on sedations. Pt's tolerating vent. HR 78 and RR 25. Administered 100% fio2 on vent. Patient suctioned for a small amount of sputum. Pt's sats increased to 91%, then dropped again. 100% administered
on vent again. RT paged at the bedside. LOG CUT OFF SAWYER made aware. RT and LOG CUT OFF SAWYER are at the bedside.
[2025-02-22] MEDS: LEVOPHED 250 IV (21:13)
[2025-02-22] MEDS: SENOKOT 17.2 MG PO (21:35)
[2025-02-22 21:51] LABS: Lactic Acid 3.6 mmol/L (0.7-2.0)
[2025-02-22 23:44] LABS: Glucose - Point of Care 111 mg/dl (70-99)
[2025-02-23] VITALS (79 sets, daily range): BP systolic 100–120; BP diastolic 45–58; BMI 26.3
--- NOTE | 2025-02-23 00:05 | PTCARENOTE ---
Patient reassessed. VSS. Remains on Levophed at 12 mcg/min. JO x 4 and grimaces with sutioning and mouth care. SpO2 at 100 % on vent setting AC 25/450/+5/50%.
[2025-02-23] MEDS: DIPRIVAN 100 IV ×4 (01:33→20:02)
[2025-02-23 01:59] LABS: Lactic Acid 3.7 mmol/L (0.7-2.0)
[2025-02-23 02:57] LABS: Glucose - Point of Care 84 mg/dl (70-99)
[2025-02-23] MEDS: LEVOPHED 250 IV ×5 (03:08→17:58)
[2025-02-23] MEDS: ZOSYN 50 IV ×4 (04:10→21:15)
--- NOTE | 2025-02-23 04:25 | PTCARENOTE ---
Patient reassessed. Pt spO2 decreases to 74-79% with turns and repositioning. SpO2 drops also when pt lays flat. Suctioning and 100 % bolus on the ventilator provided. RT paged and made weinstein. No other changes.
[2025-02-23] MEDS: SUBLIMAZE 100 IV ×2 (04:33→22:12)
[2025-02-23 04:40] LABS: B.E. -7.6 mmol/L; O2 Saturation % 99.7 % (94-98); PCO2 22 mmHg (35-48); PO2 166 mmHg (83-108); pH 7.45 (7.35-7.45)
[2025-02-23 04:42] LABS: Hemoglobin 7.4 g/dL (13.0-18.0); Mean Corp Hgb Conc. 29.6 g/dL (33.0-37.0); Mean Corpuscular Hgb 19.3 pg (27.0-31.0); Mean Corpuscular Volume 65.1 fL (80.0-94.0); Mean Platelet Volume 10.2 fL (7.4-10.4); Platelet Count 245 10^3/uL (130-400); Red Blood Cell Count 3.84 10^6/uL (4.70-6.10); Red Cell Dist. Width 18.4 % (11.5-14.5); White Blood Cell Count 10.4 10^3/uL (4.8-10.8)
[2025-02-23 04:59] LABS: Alkaline Phosphatase 142 U/L (38-126); Blood Urea Nitrogen 79 mg/dl (9-20); Calcium 7.2 mg/dl (8.4-10.2); Carbon Dioxide 19 mmol/L (22-30); Chloride 99 mmol/L (98-107); Estimated Creatinine Clearance 22 ml/min; Glucose 109 mg/dl (70-99); Magnesium 2.1 mg/dl (1.6-2.3); Potassium 4.9 mmol/L (3.5-5.1); Sodium 130 mmol/L (135-145); Total Bilirubin 1.2 mg/dl (0.2-1.3); Total Protein 4.8 g/dl (6.3-8.2); eGFR 17.47
[2025-02-23 05:16] LABS: ALT (SGPT) 1517 U/L (0-50)
[2025-02-23] MEDS: SODIUM BICARBONATE 1150 MEQ IV (05:16)
[2025-02-23 05:23] LABS: HCO3 15.3 mmol/L (21-28); O2 Therapy 40%
[2025-02-23 05:23] LABS: AST (SGOT) 1879 U/L (17-59)
[2025-02-23 05:32] LABS: Glucose - Point of Care 74 mg/dl (70-99)
[2025-02-23] MEDS: STERILE WATER FOR INJECTION IV (06:27)
[2025-02-23 06:51] LABS: Glucose - Point of Care 100 mg/dl (70-99)
--- NOTE | 2025-02-23 07:47 | W.PN.HOSP.TC ---
Today's Communication/Plan
-
Continues intubate and sedated
Assessment / Plan
Assessment / Plan
Patient is a 54y M with PMH significant for substance abuse and Hep C who presents to ED from [facility] for evaluation of weakness, mental status change, fatigue.
Decompensated in am and is now sedated and intubated. Emergency paracentesis performed yesterday.
temp 98.1
BP 115/51
Pulse 82
H/H 7.4/25.0 (worse)
BUN/Creat 79/3.9 (worse)
AST/ALT 1879/1517 (worse)
Troponin 0.505
Active problems:
Severe metabolic acidosis with lactic acid elevation
Pneumonia. Bilateral pneumonia vs atelectasis on imaging.
Acute kidney injury with hyperkalemia.
Acute on chronic liver injury, history of HCV related cirrhosis.
Bilateral pleural effusion and anasarca noted on CT.
Acute metabolic encephalopathy
History of polysubstance abuse, noncompliance.
1. Cirrhosis / Ascites - r/o SBP - on broad spectrum abx. - Complicated by Hyponatremia and a History of Hep C
- CT done in the ED showed cirrhosis with moderate ascites. Limited study without IV contrast (JOVAN).
- IV abx with ceftriaxone given, now broadened.
- Emergency paracentesis / fluid analysis. no organisms seen
- GI evaluation for additional recommendations.
- Check abdominal US when available
- Will likely require diuretic regimen to manage ascites, symptoms, etc, once cause of sepsis/decompensation is found
AST/ALT 650/508 --> 1879/1517
Shock liver vs hepatorenal
Keep following until peak
Insurance Billing Clerk co-managing. Help appreciated.
2. JOVAN, today 79/3.9 (was 63/3.9)
Complicated by Hyperkalemia and Lactic Acidosis
- No evidence of urinary retention, obstruction, etc on CT.
- IVF support for now.
- Monitor for any new symptoms,
- Bladder scan protocol.
- Follow for improvement in renal function.
- Probable hepatorenal syndrome.
- Patient with total body volume overload and will likely benefit from diuresis once lactic acidosis improved.
3. Hypothermia - Unclear etiology. ? related to cirrhosis vs infection
- TFTs with moderately elevated TSH but normal T4.
- Recent cough - COVID / flu negative. Chest imaging with b/l effusions and likely associated atelectasis and/or pneumonia.
- Procal done in the ED was low.
- Supportive care. Follow for improvement with correction in lactic acidosis.
- Now intubated
4. Abnormal Troponin - Suspect non-[place] Elevation, supply/demand missmatch
- Trop = 0.183 on initial set. now 0.505. Likely secondary to acute illness / acidosis / etc.
- No chest pain or dyspnea.
- EKG with out evident ischemic changes.
- Follow troponin to peak. Monitor for any chest pain or other symptoms.
- Check Echo.
5. Microcytic Anemia - Unknown acuity / etiology. worsening
- Heme test stools, check iron studies, etc.
- Follow for changes in H&H or any evidence of gross blood loss.
- transfuse if H/H < 7.0/21
DVT Prophylaxis: Subcut Heparin
Code Status: Full
Sedated / intubated
Anticipated Discharge: > 48 hours
Subjective/Interval History
-
Date of Service: February 23, 2025
intubated and sedated
Objective Data
-
Labs:
Laboratory Results
02/23/25 02/23/25
04:14 04:23
WBC 10.4
Hgb 7.4 L
Hct 25.0 L
Plt Count 245 D
HCO3 15.3 L*
Sodium 130 L
Potassium 4.9
Chloride 99
Carbon Dioxide 19 L
BUN 79 H
Creatinine 3.9 H
Glucose 109 H
Calcium 7.2 L
Total Bilirubin 1.2
AST 1879 H*
ALT 1517 H*
Alkaline Phosphatase 142 H
Vital Signs:
Vital Signs
Temp Pulse Resp BP Pulse Ox
98.1 F 83 25 115/51 96
02/23/25 07:40 02/23/25 07:35 02/23/25 07:35 02/23/25 07:35 02/23/25 07:35
I&O
02/22/25 02/23/25 02/24/25
06:59 06:59 06:59
Intake Total 150 / 250 4052.7 / 4052.7
Output Total 234 / 234
Balance 150 / 250 3818.7 / 3818.7
Review of Systems
-
Unable to obtain full review of systems at this time due to: Patient Intubation
Physical Exam
-
General: Intubated
HEENT: Nose Appears Normal and Ears Appear Normal
Respiratory: Clear to Auscultation
Cardiac: Regular Rhythm, S1/S2 and Murmur
GI: Soft
Musculoskeletal: No Clubbing, No Cyanosis and No Edema
Skin: Warm and Dry
Neuro: Sedated
Psych: Calm
Data Reviewed
-
Labs: Labs Reviewed by me
[2025-02-23] MEDS: PROTONIX IV 40 MG IV (08:21)
[2025-02-23] MEDS: NSS (PRESERVATIVE FREE) 10 ML IV (08:21)
[2025-02-23] MEDS: MIRALAX 17 GRAMS TUBE (08:21)
[2025-02-23] MEDS: HEPARIN SC ×2 (08:21→08:28)
[2025-02-23] MEDS: COLACE PO (08:26)
--- NOTE | 2025-02-23 08:29 | PTCARENOTE ---
Assumed Care at 0700. patient intubated and sedated. ETT # 8/23cm to center/lip . Vent : (S)CMV 25 b/min; 450ml +5cmH2O; 40% Peak 25 VTE 464 VTE 458 ml own RR 25b/mint . RT subcervical Central TL line Blue port : Bicarb and Propofol and White port
Levophed and Fentanyl ; Indwelling Ingram to monitor Critical I/O . Meds: Levophed at 18mcg/67.5 and Fentanyl 50mcg/5 ml ; Bicarb 150ml /hr Propofol 25mcg /112 hr
Per morning rounds with physician secondary to increase fluid volume with decrease urinal output : Bicarb d/c . Hgb this am 7.4 Heparin SQ d/c No tube feed at this time.
oral care and Ingram care done . pt suctioned for small amount of white secretion HOB elevated REstraints b/l in place to prevent pt of pulling tube. Prion guards x 2 at bedside
[2025-02-23 08:37] LABS: Urine Sodium 17 mmol/L (30-90)
--- NOTE | 2025-02-23 09:28 | PTCARENOTE ---
POx drops to 64% whilke on FiO2 100% PEEP 5 during repositioning and suctioning . Takes a long time for patient to increase POX above 90% PEEP increased from 5 to 8 cmH2O Current Vent settings (S)CMV 25bpm 450ml 8cm H2O 40%
[2025-02-23] MEDS: PITRESSIN 100 IV ×2 (09:41→19:40)
[2025-02-23 09:44] LABS: Anti Streptolysin Positive (Negative)
[2025-02-23 09:54] LABS: ASO Quantitative 400 IU/ml (<200)
--- NOTE | 2025-02-23 11:23 | W.PN.GI.CBS2 ---
Today's Communication / Plan
-
Care per primary service. LFT elevation c/w ischemic injury.
Assessment / Plan
-
Rob Smith is a 54 y.o. male who is currently incarcerated with a reported history of hepatiis C with findings of cirrhosis on imaging who presented from care home with weakness found to be in septic shock, unclear source. Due to refusal of care
and worsening acidosis, he was deemed incapable of making medical decisions, subsequently intubated. His clinical status has rapidly declined, unclear source of shock. Currently on pressors and broad spectrum antibiotics. ECHO pending.
Labs significant for metabolic lactic acidosis with JOVAN, elevated LFTs, troponin and microcytic anemia. LFTs worsened overnight, given clinical picture worsening hepatocellular injury consistent with ischemic hepatopathy.
CT A/P: Heart is moderately enlarged.� Small bilateral pleural effusions, right greater than left. �Mild amount of subpleural airspace consolidation in the anterior medial and lateral basilar segments of the left lower lobe and in the anterior
basilar segment of the right lower lobe.� Severe anasarca. Mild hepatic cirrhosis. Small volume of upper abdominal perihepatic ascites.� The gallbladder is distended without evidence for abnormal wall thickening or pericholecystic inflammation.� No
abnormal biliary dilation.� No pancreatic ductal dilatation.� Mild peripancreatic edema.� Enlarged left para-aortic retroperitoneal lymph node measuring 1.5 x 1.5 cm.� There are other mildly enlarged retroperitoneal lymph nodes.� Diffuse
circumferential wall thickening throughout the left upper quadrant jejunal small bowel loops.� Right indirect inguinal hernia containing a 10 cm peritoneal fluid collection
Lactic acid 8 --> 8.9 --> 5.8--> 2.8 --> --> 4
Tbili 1.8
Dbili 0.9
AST 650--> 2164
ALT 508-->1398
Alk phos 184--> 149
#Undifferentiated shock w/ metabolic acidosis and hyperkalemia and JOVAN
#(Suspected) HCV Cirrhosis
#Ascites
#Elevated LFTs
-per records, history of IVDA
-evidence of ascites on imaging, s/p bedside diagnostic paracentesis, neg for SBP, high SAAG low protein c/w portal HTN
-continue broad spectrum abx
-currently intubated and sedated requiring pressors
-EHCO pending
-BCx NGTD; strep and legionella negative
-unknown baseline LFTs- suspect some degree of elevation 2/2 sepsis with initial labs but significant worsening LFTs overnight c/w ischemic injury
-hepatitis panel pending
-hold on diuretics given sepsis and JOVAN
-HCC screening q6 months with US/MRI and AFP
-outpatient follow-up to manage care and perform necessary surveillance
Clinical picture overall unlikely 2/2 underlying chronic liver disease. Will continue to follow along with you. Rest of care per primary service/erisa attorney.
Subjective
Subjective
Date of Service: February 23, 2025
Patient seen in follow-up, now intubated and sedated on pressors with worsening renal function. Unclear etiology of septic shock. ECHO pending
Objective
Data Reviewed
Laboratory Data:
Laboratory Results
02/23/25 04:14
02/23/25 04:14
Laboratory Results
PT 20.9 Sec (11.4-14.6) H 02/22/25 04:13
INR 1.78 02/22/25 04:13
APTT 31.2 Sec (23.4-35.0) 02/22/25 04:13
Phosphorus 9.3 mg/dl (2.5-4.5) H 02/22/25 04:13
Magnesium 2.1 mg/dl (1.6-2.3) 02/23/25 04:14
Total Bilirubin 1.2 mg/dl (0.2-1.3) 02/23/25 04:14
AST 1879 U/L (17-59) H* 02/23/25 04:14
ALT 1517 U/L (0-50) H* 02/23/25 04:14
Alkaline Phosphatase 142 U/L (38-126) H 02/23/25 04:14
Vital Signs and I&O:
Vital Signs
Temp Pulse Resp BP Pulse Ox
99.0 F 81 25 114/52 95
02/23/25 11:06 02/23/25 10:45 02/23/25 10:45 02/23/25 10:30 02/23/25 10:45
I&O
02/22/25 02/23/25 02/24/25
06:59 06:59 06:59
Intake Total 150 / 250 4052.7 / 4287.2 688.0 / 688.0
Output Total 234 / 259 75 / 75
Balance 150 / 250 3818.7 / 4028.2 613.0 / 613.0
Physical Exam
Physical Exam
GENERAL: Intubated, sedated; ansasarca
ABDOMEN: +BS, soft and distended
--- NOTE | 2025-02-23 11:33 | W.PN.NEPH.PH ---
Today's Communication / Plan
-
80 mg IV Lasix x 1
Assessment/Plan
-
54-year-old male with past medical history of substance abuse and anxiety presenting to the ER with correctional officers for evaluation of a multitude of concerns including questionable fevers, cough, back pain, altered mental status/confusion,
Impression.
Acute kidney injury.
Acute metabolic acidosis.
History of hepatitis C.
Hyperkalemia.
Transaminitis.
Anasarca.
Plan.
Admitting creatinine 3.9 with a potassium of 6.2 and a metabolic acidosis with a bicarb of 7.
Rule out hepatorenal syndrome though unlikely with urinalysis 4+ protein, hematuria, WBCs 40-50.
Pancultures= negative to date
Antibiotics.
Pressor support as indicated
Status post the paracentesis diagnostic and negative.
Serum serologies ordered pending
Creatinine remains at 3.9 acidosis improved
Remains on pressors
I will give 1 dose of Lasix 80 mg IV x 1 as patient is total body volume overloaded with poor effective arterial blood volume.
Total Time Spent with Patient (in minutes): 35
-
-
Date of Service: February 23, 2025
CC / HPI / ROS
-
Chief Complaint:
Altered mental status
History of Present Illness:
Patient presents from longterm acute kidney injury intubated and history of hepatitis C
Review of Systems:
Oliguric
Intubated unobtainable
Labs
-
Labs:
WBC 10.4 10^3/uL (4.8-10.8) 02/23/25 04:14
RBC 3.84 10^6/uL (4.70-6.10) L 02/23/25 04:14
Hgb 7.4 g/dL (13.0-18.0) L 02/23/25 04:14
Hct 25.0 % (39.0-52.0) L 02/23/25 04:14
Plt Count 245 10^3/uL (130-400) D 02/23/25 04:14
Sodium 130 mmol/L (135-145) L 02/23/25 04:14
Potassium 4.9 mmol/L (3.5-5.1) 02/23/25 04:14
Chloride 99 mmol/L (98-107) 02/23/25 04:14
Carbon Dioxide 19 mmol/L (22-30) L 02/23/25 04:14
BUN 79 mg/dl (9-20) H 02/23/25 04:14
Creatinine 3.9 mg/dL (0.7-1.3) H 02/23/25 04:14
eGFR 17.47 02/23/25 04:14
Glucose 109 mg/dl (70-99) H 02/23/25 04:14
Calcium 7.2 mg/dl (8.4-10.2) L 02/23/25 04:14
Phosphorus 9.3 mg/dl (2.5-4.5) H 02/22/25 04:13
Pbu-K-Llwqtwgiphf Pept > 92808 pg/ml 02/21/25 21:54
Albumin 2.0 g/dl (3.5-5.0) L 02/23/25 04:14
Physical Exam
-
Vital Signs:
Vital Signs
Temp Pulse Resp BP Pulse Ox
99.0 F 81 25 114/52 95
02/23/25 11:06 02/23/25 10:45 02/23/25 10:45 02/23/25 10:30 02/23/25 10:45
[2025-02-23 12:26] LABS: B.E. -7.8 mmol/L; PCO2 24 mmHg (35-48); PO2 432 mmHg (83-108); pH 7.42 (7.35-7.45)
[2025-02-23 12:36] LABS: HCO3 15.6 mmol/L (21-28)
--- NOTE | 2025-02-23 13:22 | W.PN.INTV ---
Today's Communication / Plan
Recommendations
- Add vasopressin
- Start stress dose steroids, hydrocortisone 50 mg every 6
- Send tracheal aspirate for Gram stain, culture and sensitivities
- Chest x-ray, ABG in a.m
- Discontinue sodium bicarbonate infusion, start diuresis
Assessment
-
Reportedly patient has longstanding history of IV drug use, history of hepatitis C, unclear if he was treated for the same, presented from [facility] with back pain, weakness. He reportedly had some cough prior to admission and was treated with
antibiotics, details unavailable. On the day of admission, he was found on the floor in his cell, naked and covered in feces. He was refusing care and complained of weakness. He was brought to the emergency room. He was noted to have metabolic
acidosis with elevated lactic acid, acute kidney injury. He was admitted to the ICU for further evaluation.
In view of severe acidosis, elevated lactate, psych tech service was requested for further input. 02/22, patient continued to have fluctuating mental status, acidosis, oligoanuria as well as intermittent episodes of tachypnea alternating with
normal respiratory rate. Patient also exhibited intermittent aggressive behavior, or intermittent refusal of care. In view of increasing work of breathing, acidosis, patient was intubated and mechanically ventilated.
#1. Shock, severe metabolic acidosis with lactic acid elevation
-Differential diagnosis includes septic shock due to Pneumonia, cardiogenic shock versus severe liver failure with hepatorenal syndrome
-Currently on levo of 18, add vasopressin infusion, lactate went from 8 down to 2.8, now trending back up at 4 this morning
-Continue broad-spectrum antibiotic vancomycin and Zosyn. White count is normal, patient continues to be afebrile, no growth on cultures so far
-Blood cultures, urine cultures, chest x-ray and CT abdomen pelvis reviewed.
-02/22, Bedside paracentesis performed, cell count not suggestive of SBP, await final ascitic fluid cultures
-Echocardiogram is pending, minimal troponin elevation noted
-Early cyanotic changes noted in bilateral fingertips and toes, suggestive of poor perfusion
-Start stress dose steroids, hydrocortisone 50 every 6 hours
-Discontinue sodium bicarbonate infusion as patient is significantly volume overloaded and pH has improved
#2. Acute respiratory failure with pneumonia. Bilateral pneumonia vs atelectasis on imaging. Patient coughing and was reportedly treated with Z-pack prior to admission
-Broad spectrum antibiotics
-Blood cultures, MRSA screen, Legionella and strep antigen, negative so far
-S/p intubation on 02/22. Currently on volume control 450 x 20 5 x 40% x 5, PEEP was subsequently increased to 8 due to desaturations noted with position change. ABG 7.45, 22, 166. PF ratio 400
-Send tracheal aspirate
-Chest x-ray in a.m.
-Peripheral oxygen saturation measurement does not match with the blood gas, related to peripheries being cold with early cyanosis
#3. Acute kidney injury with hyperkalemia and Anuria. Differential diagnosis includes hepatorenal syndrome, need to rule out other etiologies including prerenal, ATN etc.
-Nephrology consult
-Status post IV fluid resuscitation, had been on isotonic bicarb infusion. Significant positive fluid balance, anasarca, discontinue bicarb drip.
-Albumin 100 g, 25%, given on 02/22 for concern of hepatorenal syndrome
-Continue Levophed
-Diagnostic paracentesis performed 02/22, SBP ruled out
-Check UA, urine electrolytes
-Lasix IV trial today in view of anuria and worsening hypervolemia
#4. Acute on chronic liver injury, history of HCV related cirrhosis. Patient reports not having had a drink in more than a year.
-INR 1.78 (mild coagulopathy), platelets normal, ammonia normal, albumin 2.0
-SBP ruled out. Ascites is not large, hold off further paracentesis
-GI service on case
-Worsening LFT this morning, likely related to shock liver
-Ultrasound abdomen shows passive hepatic venous congestion with small volume of ascites and incidental cholelithiasis.
#5. Bilateral pleural effusion and anasarca noted on CT. Suspect this is related to underlying cirrhosis and hypoalbuminemia
-Check echocardiogram in view of very elevated BNP (>40789) as well as cardiomegaly noted on imaging
#6. Acute metabolic encephalopathy
-Multifactorial in view of uremia, underlying worsening liver function, shock, pneumonia
-currently intubated and sedated
#7. History of polysubstance abuse, noncompliance.
-After we were allowed to contact patient's family by the officer in room, I called patient's Sister Maci, (02/22) phone #[phone]. Maci told me that patient has longstanding history of noncompliance with medical treatment, has been
homeless, recent hospitalization for pneumonia. She also stated prior hospitalization for fentanyl overdose as well as prior history of heroin use. She also reported that patient has had history of aggressive behavior at times and signs out of
hospitals AGAINST MEDICAL ADVICE. She also told me that patient has expressed to her that in the event of cardiorespiratory arrest, he would not want chest compressions, shocks or resuscitation hence CODE STATUS to be changed to DNR.
Family update: 02/23, I called his sister and NOK, Maci @ [phone], and updated her about patient's critical condition. I updated her regarding worsening renal function and possible need for renal replacement therapy in near future. She asked
if she could visit understanding that patient is currently incarcerated. I discussed with the officers at bedside who told me that considering patient is critically ill, family can visit him. Information passed on to Maci. We discussed CODE
STATUS again and she confirmed DNR CODE STATUS.
Prognosis is poor.
Critical Care time 45 mins -- The patient is admitted for acute critical illness for the treatment of vital organ failure and/or prevention of further life-threatening conditions. Total care includes time spent in review of history, physical exam,
medications, hemodynamic/ventilator parameters, laboratory data, imaging and discussion with house staff, pharmacy, respiratory therapy, hydrogen operator, and nursing. This time did not include the time spent on performing procedures.
Subjective Dataa
Subjective Data
Date of Service:
Date of Service: February 23, 2025
Subjective:
Patient currently intubated, mechanically ventilated and sedated
Review of Systems
General: Unobtainable - Pat Unresp
Objective Data
Data Reviewed
Vital Signs / I&O / Oxygen:
Vital Signs
Temp Pulse Resp BP Pulse Ox
99.0 F 81 25 114/52 77
02/23/25 11:06 02/23/25 10:45 02/23/25 10:45 02/23/25 10:30 02/23/25 11:44
Intake and Output
02/22/25 02/23/25 02/24/25
06:59 06:59 06:59
Intake Total 150 / 250 4052.7 / 4287.2 688.0 / 688.0
Output Total 234 / 259 75 / 75
Balance 150 / 250 3818.7 / 4028.2 613.0 / 613.0
SaO2 [SIMV] 99
SaO2 [A/C] 100
SaO2 77
Physical Exam
General: Comfortable
HEENT: Normocephalic
Cardiovascular: S1-S2
Respiratory: Non-Labored Respirations
GI: Soft and Non Distended
Skin: Cyanosis (Mild cyanosis noted on fingertips, toes bilaterally)
Labs/Micro/Reports
Lab Data
02/23/25 04:14
02/23/25 04:14
Laboratory Results
02/22/25 02/23/25 02/23/25
18:19 04:23 12:20
pH 7.29 L 7.45 7.42
pCO2 30 L 22 L 24 L
pO2 69 L 166 H 432 H
HCO3 14.4 L* 15.3 L* 15.6 L*
O2 Delivery Level 40% Not Reportable
Microbiology
02/21/25 23:35 Urine Urine Culture - Final
NO GROWTH
02/22/25 09:35 Peritoneal Fluid Body Fluid Culture - Preliminary
No Growth After 18-24 Hours
02/22/25 09:35 Peritoneal Fluid Gram Stain - Preliminary
02/21/25 21:54 Blood/Venous Blood Culture - Preliminary
No Growth in 24 hours- Final report to follow
02/21/25 21:54 Blood/Venous Blood Culture - Preliminary
No Growth in 24 hours- Final report to follow
02/22/25 11:29 Urine Legionella Urinary Antigen - Final
Negative for Legionella pneumophila Serogroup 1 antigen.
A negative result does not rule out the possiblity of
Legionella infection due to other serogroups or species of
Legionella. Clinical correlation is recommended.
02/22/25 11:29 Urine Streptococcus pneumoniae Antigen (M - Final
Negative for Streptococcus pneumoniae antigen.
A negative result does not exclude infection with
Streptococcus pneumoniae. Clinical correlation is
recommended.
02/22/25 09:35 Peritoneal Fluid Gram Stain - Final
02/21/25 21:54 Nasal Swab Influenza Types A & B (SANDY) - Final
Negative for Influenza A & B, NAAT
Negative results must be combined with clinical observations
and patient history.
Nucleic Acid Amplification test (NAAT)performed on the
[employer] platform.
--- NOTE | 2025-02-23 13:46 | OR.RPT ---
Operative Report
Operative Report
Right Axillary Arterial catheter placement
Indication: Patient in shock on multiple pressor therapy and needs invasive blood pressure monitoring. Also unable to get consistent peripheral saturation. Radial arteries were tried overnight without success. Femoral area has significant anasarca,
hence Right Axillary artery was chosen as site for A line.
Bedside ultrasound was used to confirm patency of right axillary artery. Under sterile condition area was subsequently cleaned and a drape was placed. 1 mL of lidocaine was injected locally for local anesthesia. Under direct ultrasound
visualization,, Axillary artery was cannulated. Once blood was aspirated, guide wire was advanced thru the needle and needle was then withdrawn. US was used to confirm guidewire in the Artery. Arterial catheter was subsequently advanced over the
guidewire, and then guidewire was removed. Pressure tubing was subsequently attached to the catheter and arterial waveform was noted on the monitor. Subsequently a dressing was placed.
Complications: None
Blood loss: Minimal
Patient tolerated procedure well.
Performed by: Claude Ibarra MD
Date of service: 02/23/2025
[2025-02-23] MEDS: LASIX 100 MG IV (13:56)
[2025-02-23] MEDS: SOLU-CORTEF 50 MG IV ×3 (13:58→23:36)
[2025-02-23 15:04] LABS: Troponin I 0.474 ng/ml
[2025-02-23 15:11] LABS: Glucose - Point of Care 86 mg/dl (70-99)
[2025-02-23 17:10] LABS: B.E. -9.1 mmol/L; O2 Saturation % 99.7 % (94-98); PCO2 27 mmHg (35-48); PO2 104 mmHg (83-108); pH 7.36 (7.35-7.45)
[2025-02-23 17:11] LABS: Glucose - Point of Care 165 mg/dl (70-99)
[2025-02-23 17:12] LABS: HCO3 15.3 mmol/L (21-28)
[2025-02-23 17:22] LABS: Lactic Acid 3.2 mmol/L (0.7-2.0)
--- NOTE | 2025-02-23 18:14 | PTCARENOTE ---
Intubated and Sedated. Levophed at 20mcg Vasopressing 0.03 ; Fentanyl 5/50mcg and Propofol 25mcg . ETT # 8/23cm center . Vent (S)CMV 25 bpm/450ml /+8/40% Suction for small amount white think secretion. Restraints soft to b/l wrist
--- NOTE | 2025-02-23 20:00 | PTCARENOTE ---
Addendum entered by Yola Arrieta RN 02/24/25 03:59:
Melissa is R axillary site not brachial site
Addendum entered by Yola Arrieta RN 02/24/25 01:06:
distal pulses via doppler, feet cool, toes & top of foot cyanotic
Original Note:
Rec'd pt with wrists restrained, ANGELINA 2mm, sluggish, fent gtt at 50mic, diprivan gtt at 25mic, SR, R brachial melissa w/ good wave form, flushes well, accurate to cuff, levophed at 22mic, vasopressin at 0.03 units,to keep MAP > 65- see flow sheet for
titrations, weak distal pulses, + edema, #8 oral ett- 24 cm , moved to left ac 25, tv 450, 8 peep, 40%, lungs coarse, sm amt secretions, hypo bowel sounds, abd round, ascites, oral [place] to low inter suction draining sm amt green, irrigated w/ 30
h20 q4h, no vomiting, thermister de souza draining sm amt roberto urine
[2025-02-23] MEDS: LEVOPHED 258 MG IV (20:43)
[2025-02-23 20:58] LABS: Lactic Acid 4.2 mmol/L (0.7-2.0)
--- NOTE | 2025-02-23 21:00 | PTCARENOTE ---
Melia Zabala NP aware of lactic, to recheck per protocal
[2025-02-23] MEDS: SENNA SYRUP 8.8 MG TUBE (21:15)
[2025-02-23 23:43] LABS: Glucose - Point of Care 153 mg/dl (70-99)
[2025-02-24] VITALS (13 sets, daily range): BP systolic 119–130; BP diastolic 44–58; BMI 27.0
--- NOTE | 2025-02-24 | PTCARENOTE ---
sys reviewed, R SC triple lumen cath dsg changed, biopatch applied,distal pulses unch, feet unch, CHG bath done, linens changed
--- NOTE | 2025-02-24 | PTCARENOTE ---
sys reviewed, lungs unch, doppler distal, feet cool, top of foot & toes cyanotic, Melia Zabala NP aware
[2025-02-24 00:16] LABS: Complement C3 70 mg/dl (88-165)
[2025-02-24 00:35] LABS: Lactic Acid 4.5 mmol/L (0.7-2.0)
[2025-02-24 00:57] LABS: Troponin I 0.343 ng/ml
[2025-02-24] MEDS: DIPRIVAN 100 IV ×4 (01:53→23:39)
[2025-02-24] MEDS: LEVOPHED 258 MG IV ×4 (01:53→21:52)
[2025-02-24] MEDS: ZOSYN 50 IV ×4 (03:44→21:52)
--- NOTE | 2025-02-24 04:02 | PTCARENOTE ---
sys reviewed, changes noted, Melia Zabala NP aware of urine output- will cont to monitor
[2025-02-24 04:27] LABS: Hematocrit 29.3 % (39.0-52.0); Hemoglobin 8.6 g/dL (13.0-18.0); Mean Corp Hgb Conc. 29.4 g/dL (33.0-37.0); Mean Corpuscular Hgb 19.2 pg (27.0-31.0); Mean Corpuscular Volume 65.5 fL (80.0-94.0); Mean Platelet Volume 10.1 fL (7.4-10.4); Platelet Count 234 10^3/uL (130-400); Red Blood Cell Count 4.47 10^6/uL (4.70-6.10); Red Cell Dist. Width 19.1 % (11.5-14.5); White Blood Cell Count 9.5 10^3/uL (4.8-10.8)
[2025-02-24 04:32] LABS: PT 21.1 Sec (11.4-14.6)
[2025-02-24 04:33] LABS: APTT 38.3 Sec (23.4-35.0)
[2025-02-24 04:45] LABS: Albumin 2.4 g/dl (3.5-5.0); Alkaline Phosphatase 146 U/L (38-126); Blood Urea Nitrogen 83 mg/dl (9-20); Calcium 7.4 mg/dl (8.4-10.2); Carbon Dioxide 13 mmol/L (22-30); Chloride 98 mmol/L (98-107); Estimated Creatinine Clearance 18 ml/min; Glucose 161 mg/dl (70-99); Magnesium 2.2 mg/dl (1.6-2.3); Potassium 5.6 mmol/L (3.5-5.1); Sodium 129 mmol/L (135-145); Total Bilirubin 1.9 mg/dl (0.2-1.3); Total Protein 5.3 g/dl (6.3-8.2); eGFR 13.62
--- NOTE | 2025-02-24 04:51 | PTCARENOTE ---
Melia Zabala NP aware of critiacl lab results
[2025-02-24] MEDS: STERILE WATER FOR INJECTION IV (04:55)
[2025-02-24 05:00] LABS: ALT (SGPT) 1928 U/L (0-50)
[2025-02-24 05:11] LABS: AST (SGOT) 1888 U/L (17-59)
[2025-02-24 05:24] LABS: Glucose - Point of Care 93 mg/dl (70-99)
[2025-02-24] MEDS: NOVOLIN R 10 UNITS IV (05:24)
[2025-02-24] MEDS: DEXTROSE 50% SYRINGE 25 GRAMS IV (05:25)
[2025-02-24] MEDS: LASIX 40 MG IV (05:25)
[2025-02-24] MEDS: SODIUM BICARBONATE 50 MEQ IV ×3 (05:25→10:13)
--- NOTE | 2025-02-24 05:25 | PTCARENOTE ---
D50 25gm IV, 10 Units Regular ins IV, 1 amp sodium bicarb IV, lasix 40mg IV given as ordered
[2025-02-24] MEDS: PITRESSIN 100 IV ×2 (05:32→17:01)
[2025-02-24] MEDS: SOLU-CORTEF 50 MG IV ×4 (05:32→23:39)
[2025-02-24 06:33] LABS: Glucose - Point of Care 164 mg/dl (70-99)
--- NOTE | 2025-02-24 07:09 | W.PN.INTV ---
Today's Communication / Plan
Recommendations
Remains on high dose pressors, not weaning down
ECHO pending, prelim noted possible vegetation
On abx, ID to be consulted
Not on heparin, may need to start pending final read
Overall prognosis poor, [facility] ongoing with family
DNR status
Assessment
-
54 year old M with history of longstanding history of IV drug use, history of hepatitis C, presented from snf with back pain, weakness. He reportedly had some cough prior to admission and was treated with antibiotics, details unavailable. On
the day of admission, he was found on the floor in his cell, naked and covered in feces. He was refusing care and complained of weakness. He was brought to the emergency room. He was noted to have metabolic acidosis with elevated lactic acid,
acute kidney injury. In view of severe acidosis, elevated lactate, chemical worker service was requested for further input. 02/22, patient continued to have fluctuating mental status, acidosis, oligoanuria as well as intermittent episodes of tachypnea
alternating with normal respiratory rate. Patient also exhibited intermittent aggressive behavior, or intermittent refusal of care. In view of increasing work of breathing, acidosis, patient was intubated and mechanically ventilated. Adm to ICU.
Shock, severe metabolic acidosis with lactic acid elevation
Acute respiratory failure with pneumonia.
Acute kidney injury with hyperkalemia and Anuria.
Acute on chronic liver injury, history of HCV related cirrhosis.
Bilateral pleural effusion and anasarca noted on CT.
Acute metabolic encephalopathy
Endocarditis suspected
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
History of polysubstance abuse, noncompliance
Kidney stones
Hep C, IVDU
Incarcerated status
Abscess of axilla s/p I&D 2011
Plan
Sedation, fent/prop
Wean as tolerated
IV drug use history; Patient reports not having had a drink in more than a year
Observe for w/d
RASS goal -2
On pressors, levophed @22, vasopressin
Differential diagnosis includes septic shock due to Pneumonia, cardiogenic shock versus severe liver failure with hepatorenal syndrome
Echocardiogram is pending, minimal troponin elevation noted
Early cyanotic changes noted in bilateral fingertips and toes, suggestive of poor perfusion
Start stress dose steroids, hydrocortisone 50 every 6 hours
Mottling on exam
Not on heparin
Vent dependant
Bilateral pneumonia vs atelectasis on imaging. Patient coughing and was reportedly treated with Z-pack prior to admission
S/p intubation on 02/22.
Currently on volume control 450 x 20 5 x 40% x 5, PEEP was subsequently increased to 8 due to desaturations noted with position change.
ABG 7.45, 22, 166. PF ratio 400
Send tracheal aspirate
Chest x-ray in a.m.--reviewed/not impressive for PNA on my review
Peripheral oxygen saturation measurement does not match with the blood gas, related to peripheries being cold with early cyanosis
Hold off on SBT while pressor requirements are high
JOVAN noted
Differential diagnosis includes hepatorenal syndrome, need to rule out other etiologies including prerenal, ATN etc.
Nephrology consult
Status post IV fluid resuscitation, had been on isotonic bicarb infusion.
Significant positive fluid balance, anasarca, discontinue bicarb drip.
Albumin 100 g, 25%, given on 02/22 for concern of hepatorenal syndrome
Continue Levophed
Check UA, urine electrolytes
Lasix IV trial today in view of anuria and worsening hypervolemia
Bicarb pushes PRN
Possible septic shock
Lactate went from 8 down to 2.8, now trending back up at 4 this morning
Continue broad-spectrum antibiotic vancomycin and Zosyn. White count is normal, patient continues to be afebrile, no growth on cultures so far
Blood cultures, urine cultures, chest x-ray and CT abdomen pelvis reviewed.
Sputum pending
02/22, Bedside paracentesis performed, cell count not suggestive of SBP, await final ascitic fluid cultures
NPO for now, intubated
INR 1.78 (mild coagulopathy), platelets normal, ammonia normal, albumin 2.0
SBP ruled out. Ascites is not large, hold off further paracentesis/less likely
GI service on case
Worsening LFT this morning, likely related to shock liver
Ultrasound abdomen shows passive hepatic venous congestion with small volume of ascites and incidental cholelithiasis.
Suspect this is related to underlying cirrhosis and hypoalbuminemia
Multifactorial in view of uremia, underlying worsening liver function, shock, pneumonia
Currently intubated and sedated
Prognosis is poor.
Family Discussions
Fred: After we were allowed to contact patient's family by the officer in room, I called patient's Sister Maci, (02/22) phone #[phone]. Maci told me that patient has longstanding history of noncompliance with medical treatment, has been
homeless, recent hospitalization for pneumonia. She also stated prior hospitalization for fentanyl overdose as well as prior history of heroin use. She also reported that patient has had history of aggressive behavior at times and signs out of
hospitals AGAINST MEDICAL ADVICE. She also told me that patient has expressed to her that in the event of cardiorespiratory arrest, he would not want chest compressions, shocks or resuscitation hence CODE STATUS to be changed to DNR.
Fred Family update 02/23: I called his sister and NOK, Maci @ [phone], and updated her about patient's critical condition. I updated her regarding worsening renal function and possible need for renal replacement therapy in near future. She
asked if she could visit understanding that patient is currently incarcerated. I discussed with the officers at bedside who told me that considering patient is critically ill, family can visit him. Information passed on to Maci. We discussed
CODE STATUS again and she confirmed DNR CODE STATUS.
Diagnostic Data
Chest X-Ray: 02/24/25- Large left basilar opacification compatible with atelectasis and/or pneumonia and possible small left pleural effusion without significant change.
02/23/25- 1. Endotracheal tube in place terminating at nearly the level of the jamal.
2. Large left lower lobe airspace consolidation which appears to have increased since 02/22/2025 (either left lower lobe pneumonia or atelectasis).
3. Small left pleural effusion.
4. Mild peripheral airspace opacity in the right midlung (either pneumonia or atelectasis) which appears unchanged.
5. Mild to moderate cardiomegaly.
CT Scan: AP 02/22/25- 1. SEVERE DIFFUSE ANASARCA.
2. Small volume of abdominal and pelvic ascites.
3. Mild hepatic cirrhosis.
4. Diffuse small bowel and colonic wall thickening.
5. Right indirect inguinal hernia containing a 10 cm peritoneal fluid collection.
6. Mild to moderate bilateral renal cortical volume loss.
7. MODERATE CARDIOMEGALY.
8. Small bilateral pleural effusions.
9. Small subpleural airspace consolidations in the lower lobes of both lungs (either pneumonia or subsegmental atelectasis).
Echo:
PFT's:
Reports and relevant images were personally reviewed.
Critical Care time 45 mins -- The patient is admitted for acute critical illness for the treatment of vital organ failure and/or prevention of further life-threatening conditions. Total care includes time spent in review of history, physical exam,
medications, hemodynamic/ventilator parameters, laboratory data, imaging and discussion with house staff, pharmacy, respiratory therapy, dental billing specialist, and nursing. This time did not include the time spent on performing procedures.
Subjective Dataa
Subjective Data
Date of Service:
Date of Service: February 24, 2025
Chief Complaint: Tack Puller Follow Up
Subjective:
Remains intubated, no events ON
Remains on levophed and vasopressin
Objective Data
Data Reviewed
Vital Signs / I&O / Oxygen:
Vital Signs
Temp Pulse Resp BP Pulse Ox
98.4 F 83 25 130/56 100
02/24/25 03:09 02/24/25 06:00 02/24/25 06:00 02/24/25 06:00 02/24/25 06:00
Intake and Output
02/23/25 02/24/25 02/25/25
06:59 06:59 06:59
Intake Total 4052.7 / 4287.2 2496.2 / 2496.2
Output Total 234 / 259 820 / 820
Balance 3818.7 / 4028.2 1676.2 / 1676.2
SaO2 [SIMV] 86
SaO2 [A/C] 99
SaO2 100
Physical Exam
General: Comfortable and Other (NAD)
HEENT: Normocephalic, Anicteric and Moist Mucous Membranes
Cardiovascular: S1-S2, Regular Rhythm and Peripheral Edema (+ edema, tight skin on LEs, mottling noted)
Respiratory: Clear, Non-Labored Respirations and ET Tube
GI: Soft and Non Distended
Neurology: Unresponsive, Lethargic and Non Verbal
Skin: Cyanosis (Moderate cyanosis noted on fingertips, toes bilaterally)
Labs/Micro/Reports
Lab Data
02/24/25 04:07
Laboratory Results
02/23/25 02/23/25 02/24/25
12:20 16:56 04:07
PT 21.1 H
INR 1.80
APTT 38.3 H
pH 7.42 7.36
pCO2 24 L 27 L
pO2 432 H 104
HCO3 15.6 L* 15.3 L*
O2 Delivery Level Not Reportable
02/24/25 02/24/25
05:00 17:00
PT
INR
APTT
pH Cancelled Cancelled
pCO2 Cancelled Cancelled
pO2 Cancelled Cancelled
HCO3 Cancelled Cancelled
O2 Delivery Level Cancelled Cancelled
Microbiology
02/21/25 21:54 Blood/Venous Blood Culture - Preliminary
No Growth in 48 hours- Final report to follow
02/21/25 21:54 Blood/Venous Blood Culture - Preliminary
No Growth in 48 hours- Final report to follow
02/22/25 11:31 Nose MRSA Screen - Final
Staph aureus MRSA
02/22/25 09:35 Peritoneal Fluid Body Fluid Culture - Preliminary
No Growth After 18-24 Hours
02/22/25 09:35 Peritoneal Fluid Gram Stain - Final
02/21/25 23:35 Urine Urine Culture - Final
NO GROWTH
02/22/25 09:35 Peritoneal Fluid Body Fluid Culture - Preliminary
No Growth After 18-24 Hours
02/22/25 09:35 Peritoneal Fluid Gram Stain - Preliminary
02/22/25 11:29 Urine Legionella Urinary Antigen - Final
Negative for Legionella pneumophila Serogroup 1 antigen.
A negative result does not rule out the possiblity of
Legionella infection due to other serogroups or species of
Legionella. Clinical correlation is recommended.
02/22/25 11:29 Urine Streptococcus pneumoniae Antigen (M - Final
Negative for Streptococcus pneumoniae antigen.
A negative result does not exclude infection with
Streptococcus pneumoniae. Clinical correlation is
recommended.
02/21/25 21:54 Nasal Swab Influenza Types A & B (SANDY) - Final
Negative for Influenza A & B, NAAT
Negative results must be combined with clinical observations
and patient history.
Nucleic Acid Amplification test (NAAT)performed on the
[employer] platform.
[2025-02-24 07:51] LABS: Glucose - Point of Care 169 mg/dl (70-99)
[2025-02-24] MEDS: NSS (PRESERVATIVE FREE) 10 ML IV (07:59)
[2025-02-24] MEDS: PROTONIX IV 40 MG IV (07:59)
[2025-02-24] MEDS: MIRALAX 17 GRAMS TUBE (08:00)
[2025-02-24] MEDS: SENNA SYRUP 8.8 MG TUBE ×2 (08:00→19:20)
--- NOTE | 2025-02-24 08:00 | PTCARENOTE ---
Assumed care of patient. Pt rec'd intubated and sedated. Responds to verbal and tactile stimuli. Uncooperative w/ care. Bilateral wrist restraints on. Pupils 2/sluggish. JO's. S1 S2 reg w/ soft murmur...NSR/BBC on monitor. DP/PT's by
doppler. +3 generalized anasarca w/ +4 scrotal edema. Knee hi SCD's on...heels elevated on pillows. #8 ETT 24cm left lip...current vent settings: 25/450/+8/40%...sats 99-100%. Lungs clear anteriorly...diminished and coarse posteriorly. Oral
salem (57cm) -> LIWS. Abdomen round/ascites...hypo BS. Temp sensing de souza draining scant yellow urine...q1h 1/O's. Skin pale in color....bilateral feet/toes mottled, cool, and cyanotic. Scattered scabs/stage 2 areas....left arm draining serous
fluid. Optifoams applied to ankles (re: shackles). Right ML noted. Right axillary william...flushed and zeroed. RSC TLC w/ diprivan, vasopressin, db levophed, and fentanyl infusing...see interventions. VS documented. Will continue to monitor.
--- NOTE | 2025-02-24 08:05 | W.PN.GI.CBS2 ---
Today's Communication / Plan
-
GI will sign off, please call with questions
Assessment / Plan
-
Rob Smith is a 54 y.o. male who is currently incarcerated with a reported history of hepatiis C with findings of cirrhosis on imaging who presented from alf with weakness found to be in septic shock, unclear source. Due to refusal of care
and worsening acidosis, he was deemed incapable of making medical decisions, subsequently intubated. His clinical status has rapidly declined, unclear source of shock. Currently on pressors, broad spectrum antibiotics and stress-dose steroids. ECHO
pending.
Labs significant for metabolic lactic acidosis with JOVAN, elevated LFTs, troponin and microcytic anemia. LFTs worsened when he was started on pressors, overall, picture c/w shock liver. Improvement in LFts overnight, lactate rising again.
CT A/P: Heart is moderately enlarged.� Small bilateral pleural effusions, right greater than left. �Mild amount of subpleural airspace consolidation in the anterior medial and lateral basilar segments of the left lower lobe and in the anterior
basilar segment of the right lower lobe.� Severe anasarca. Mild hepatic cirrhosis. Small volume of upper abdominal perihepatic ascites.� The gallbladder is distended without evidence for abnormal wall thickening or pericholecystic inflammation.� No
abnormal biliary dilation.� No pancreatic ductal dilatation.� Mild peripancreatic edema.� Enlarged left para-aortic retroperitoneal lymph node measuring 1.5 x 1.5 cm.� There are other mildly enlarged retroperitoneal lymph nodes.� Diffuse
circumferential wall thickening throughout the left upper quadrant jejunal small bowel loops.� Right indirect inguinal hernia containing a 10 cm peritoneal fluid collection
Lactic acid 8 --> 8.9 --> 5.8--> 2.8 --> --> 4--> 5
Tbili 1.8 --> 1.9
Dbili 0.9
AST 650--> 2164 --> 1888
ALT 508-->1398--> 1928
Alk phos 184--> 149--> 146
#Undifferentiated shock w/ metabolic acidosis and hyperkalemia and JOVAN
#(Suspected) HCV Cirrhosis
#Ascites
#Elevated LFTs
-per records, history of IVDA
-evidence of ascites on imaging, s/p bedside diagnostic paracentesis, neg for SBP, high SAAG low protein c/w portal HTN
-continue broad spectrum abx, stress-dosed steroids
-currently intubated and sedated requiring pressors
-EHCO pending
-BCx NGTD; strep and legionella negative
-unknown baseline LFTs- suspect some degree of elevation 2/2 sepsis with initial labs but significant worsening LFTs 2/2 shock liver, now downtrending
-hepatitis panel pending
-hold on diuretics given sepsis and JOVAN
-HCC screening q6 months with US/MRI and AFP
-outpatient follow-up to manage care and perform necessary surveillance
Clinical picture overall unlikely 2/2 underlying chronic liver disease. Defer care to primary team/lipstick molder for treatment of shock with multisystem organ failure. GI will sign off, please call with questions.
Subjective
Subjective
Date of Service: February 24, 2025
Patient seen in follow-up. Remains critically-ill, intubated and sedated on pressors and stress dose steroids
Objective
Data Reviewed
Laboratory Data:
Laboratory Results
02/24/25 04:07
Laboratory Results
PT 21.1 Sec (11.4-14.6) H 02/24/25 04:07
INR 1.80 02/24/25 04:07
APTT 38.3 Sec (23.4-35.0) H 02/24/25 04:07
Phosphorus 9.3 mg/dl (2.5-4.5) H 02/22/25 04:13
Magnesium 2.2 mg/dl (1.6-2.3) 02/24/25 04:07
Total Bilirubin 1.9 mg/dl (0.2-1.3) H 02/24/25 04:07
AST 1888 U/L (17-59) H* 02/24/25 04:07
ALT 1928 U/L (0-50) H* 02/24/25 04:07
Alkaline Phosphatase 146 U/L (38-126) H 02/24/25 04:07
Vital Signs and I&O:
Vital Signs
Temp Pulse Resp BP Pulse Ox
98.9 F 83 25 130/56 100
02/24/25 07:22 02/24/25 06:00 02/24/25 06:00 02/24/25 06:00 02/24/25 07:26
I&O
02/23/25 02/24/25 02/25/25
06:59 06:59 06:59
Intake Total 4052.7 / 4287.2 2496.2 / 2563.5 67.3 / 67.3
Output Total 234 / 259 820 / 847 27 / 27
Balance 3818.7 / 4028.2 1676.2 / 1716.5 40.3 / 40.3
Physical Exam
Physical Exam
GENERAL: Intubated, sedated; ansasarca
ABDOMEN: +BS, soft and distended
[2025-02-24 08:10] LABS: Lactic Acid 4.4 mmol/L (0.7-2.0)
[2025-02-24 08:15] LABS: Potassium 5.3 mmol/L (3.5-5.1)
--- NOTE | 2025-02-24 09:00 | PTCARENOTE ---
Echo done at bedside.
--- NOTE | 2025-02-24 09:14 | W.PN.NEPH.PH ---
Today's Communication / Plan
-
await sister decision
Assessment/Plan
-
54-year-old male with past medical history of substance abuse and anxiety presenting to the ER with correctional officers for evaluation of a multitude of concerns including questionable fevers, cough, back pain, altered mental status/confusion,
Impression.
Acute kidney injury.
Acute metabolic acidosis.
History of hepatitis C.
Hyperkalemia.
Transaminitis.
Anasarca.
Plan.
worsening JOVAN, will require CRRT unless family chooses less aggressive care
sister reportedly stated pt would not want any of this done
follow BMP
additional Bicarb
lasix again
keep MAP > 65
lactate daily, likely stuck with persistent liver dysfunction
await echo reading
complements low, supporting septic shock
critical care time 40 minutes
-
-
Date of Service: February 24, 2025
CC / HPI / ROS
-
Chief Complaint:
Altered mental status
shock
History of Present Illness:
Patient presents from [facility] acute [facility] injury intubated and history of hepatitis C
JOVAN.Cr worse to 4.8
acidosis marginally better 13
K remains high 5.3
LFTs stalled elevated
Review of Systems:
intubated sedated
Labs
-
Labs:
WBC 9.5 10^3/uL (4.8-10.8) 02/24/25 04:07
RBC 4.47 10^6/uL (4.70-6.10) L 02/24/25 04:07
Hgb 8.6 g/dL (13.0-18.0) L 02/24/25 04:07
Hct 29.3 % (39.0-52.0) L 02/24/25 04:07
Plt Count 234 10^3/uL (130-400) 02/24/25 04:07
eGFR 13.62 02/24/25 04:07
Phosphorus 9.3 mg/dl (2.5-4.5) H 02/22/25 04:13
Wra-N-Gnulafbzegb Pept > 10887 pg/ml 02/21/25 21:54
Albumin 2.4 g/dl (3.5-5.0) L 02/24/25 04:07
Physical Exam
-
Vital Signs:
Vital Signs
Temp Pulse Resp BP Pulse Ox
98.9 F 83 25 130/56 100
02/24/25 07:22 02/24/25 06:00 02/24/25 06:00 02/24/25 06:00 02/24/25 07:26
Cardiovascular:: Regular rate and rhythm
Respiratory:: Bilateral: Coarse
Lung Excursion:: Normal
Abdomen:: Nontender and Soft
Bowel Sounds:: Normal
Extremity Edema:: +2: Bilateral:
[2025-02-24 09:35] LABS: Glucose - Point of Care 164 mg/dl (70-99)
[2025-02-24] MEDS: SUBLIMAZE 50 MCG IV (10:10)
[2025-02-24] MEDS: LASIX 80 MG IV (10:13)
--- NOTE | 2025-02-24 11:29 | W.PN.HOSP.TC ---
Addendum entered and electronically signed by Refugio Cameron MD 02/24/25 14:52:
ECHO w/ Echo densities are seen near the apex consistent with prominent trabeculations. Cannot exclude RV thrombus.
Await cards input
Original Note:
Today's Communication/Plan
-
ID input
Wean pressors
IV diuresis
Trend Cr
monitor UOP
Criticially ill.
Assessment / Plan
Assessment / Plan
Patient is a 54y M with PMH significant for substance abuse and Hep C who presents to ED from [facility] for evaluation of weakness, mental status change, fatigue.
Decompensated in am and is now sedated and intubated. Emergency paracentesis performed yesterday.
#Shock likely septic likely secondary to suspected endocarditis versus low likelihood of pneumonia
On 2 pressors.
Continue with stress dose steroids
Wean pressors as tolerated
On IV Zosyn
Initial blood cultures recommendation negative
Status post diagnostic paracentesis negative for SBP
Tracheal aspirate in lab
My assessment positive
Urine culture negative
Influenza and COVID was negative
Eventually may require EWA
HIV is pending hepatitis panel is pending
ECHO TTE 60%. Echo density is seen on likely the noncoronary cusp is consistent with possible vegetation. Severe aortic regurgitation
Will consult infectious disease
#Acute toxic metabolic encephalopathy
#Acute respiratory failure
Status post intubation and sedation and on mechanical ventilation
Monitor mentation post extubation
#Decompensated liver cirrhosis secondary to suspected hepatitis C
Hepatitis panel is pending
HCV RNA quantitative is pending
Status post diagnostic paracentesis and fluid studies negative
Diuresis being managed by nephrology
Gastroenterology signed off
Suspected shock liver in the setting of severe shock
Continue to trend CMP
Continue to trend till peak.
#Lactic acidosis likely type B
Can hold off on further trending it
#Acute kidney injury likely secondary to AIN/ATN/prerenal versus low likelihood of HRS
Complicated by Hyperkalemia and metabolic and lactic Acidosis
No evidence of urinary retention, obstruction, etc on CT.
Status post IV fluids
Monitor for any new symptoms,
Bladder scan protocol.
Status post sodium bicarbonate
Follow for improvement in renal function.
Started on diuresis per nephrology. Creatinine continues to worsen.
#Hypothermia - Unclear etiology. ? related to cirrhosis vs infection
TFTs with moderately elevated TSH but normal T4.
Recent cough - COVID / flu negative. Chest imaging with b/l effusions and likely associated atelectasis and/or pneumonia.
Procal done in the ED was low.
Supportive care. Follow for improvement with correction in lactic acidosis.
Now intubated
# Abnormal Troponin - Suspect non-OK Elevation, supply/demand missmatch
- Trop = 0.183 on initial set. now 0.505. Likely secondary to acute illness / acidosis / etc.
- No chest pain or dyspnea.
- EKG with out evident ischemic changes.
- Follow troponin to peak. Monitor for any chest pain or other symptoms.
- Echo with normal left ventricular thickness, wall motion and function. EF 60%. Diastolic function indeterminate. Moderate to severe mitral regurgitation. Echo density is seen on likely the noncoronary cusp is consistent with possible
vegetation. Severe aortic regurgitation
Microcytic Anemia - Unknown acuity / etiology. worsening
- Heme test stools, check iron studies, etc.
- Follow for changes in H&H or any evidence of gross blood loss.
- transfuse if H/H < 7.0/21
DVT Prophylaxis: Subcut Heparin
Code Status: DNR
Discussed with ball thread machine tender
remains critically ILL. prognosis guarded
Total Critical Care Time 40 minutes. I was immediately available to the patient and staff. I personally examined, reviewed labs, diagnostic images/reports, interpretations, treatment plans, discussed patient care with other providers and family
or caregivers (if patient is unable to make decisions), entered orders as appropriate and documented the medical record.
Anticipated Discharge: > 48 hours
Subjective/Interval History
-
Date of Service: February 24, 2025
intubated and sedated
on levophed and vasopressin
Anasarca noted
underwent TTE earlier today
Objective Data
-
Labs:
Laboratory Results
02/24/25 02/24/25 02/24/25
04:07 05:00 07:49
WBC 9.5
Hgb 8.6 L
Hct 29.3 L
Plt Count 234
PT 21.1 H
INR 1.80
APTT 38.3 H
HCO3 Cancelled
Sodium 129 L
Potassium 5.6 H 5.3 H
Chloride 98
Carbon Dioxide 13 L*
BUN 83 H
Creatinine 4.8 H*
Glucose 161 H
Calcium 7.4 L
Total Bilirubin 1.9 H
AST 1888 H*
ALT 1928 H*
Alkaline Phosphatase 146 H
02/24/25 02/24/25 02/24/25
10:00 14:00 17:00
WBC
Hgb
Hct
Plt Count
PT
INR
APTT
HCO3 Cancelled
Sodium Cancelled Pending
Potassium Cancelled Pending
Chloride Cancelled Pending
Carbon Dioxide Cancelled Pending
BUN Cancelled Pending
Creatinine Cancelled Pending
Glucose Cancelled Pending
Calcium Cancelled Pending
Total Bilirubin
AST
ALT
Alkaline Phosphatase
Vital Signs:
Vital Signs
Temp Pulse Resp BP Pulse Ox
98.7 F 74 25 115/39 100
02/24/25 11:07 02/24/25 11:15 02/24/25 11:15 02/24/25 10:13 02/24/25 11:15
I&O
02/23/25 02/24/25 02/25/25
06:59 06:59 06:59
Intake Total 4052.7 / 4287.2 2496.2 / 2563.5 379.2 / 379.2
Output Total 234 / 259 820 / 847 97 / 97
Balance 3818.7 / 4028.2 1676.2 / 1716.5 282.2 / 282.2
Physical Exam
-
General: Intubated and Appears Chronically Ill
HEENT: Nose Appears Normal and Ears Appear Normal
Respiratory: Decreased Breath Sounds
Cardiac: Regular Rhythm, S1/S2 and Murmur
GI: Soft, Nontender and Nondistended
Musculoskeletal: No Clubbing, No Cyanosis, Edema, Right Upper Extrem, Edema, Left Upper Extrem, Edema, Right Lower Extrem, Edema, Left Lower Extrem and Other (Bilateral feet mottled)
Skin: Warm and Dry
Neuro: Sedated
Psych: Calm
[2025-02-24 11:34] LABS: Glucose - Point of Care 161 mg/dl (70-99)
--- NOTE | 2025-02-24 12:00 | PTCARENOTE ---
No major changes in physical assessment since am. Echo completed. ID consulted. VS documented. Will continue to monitor closely.
--- NOTE | 2025-02-24 12:40 | CON.CAR ---
Addendum entered and electronically signed by Gala Barragan DO 02/24/25 16:28:
I saw and examined the patient.
The Still Operator Whiskey's note was reviewed and I agree with the note.
Comment: Patient was seen and examined in ICU 3366 with cardiac PA. Case discussed with Wire Splicer and ICU nursing. Cardiology consulted after abnormal echocardiogram concerning for endocarditis after [facility] with fever, lethargy and change in mental status. Patient is intubated and sedated. History obtained from nursing, basin tender and chart review. Additional information gained by telephone conversation with his sister Marycruz, in [place].
Patient's sister reported to basin tender team that patient has a longstanding h/o alchol and polysubstance drug abuse and has been living on the streets. Patient has a h/o Hep C and no definitive evidence that it was ever treated. Patient's sister
last heard from him 07/2024 when he was admitted to [facility] with AV endocarditis and was turned down for surgery due to liver issues and then signed himself out AMA and she did not hear from him again until we called. He is clinically
ill intubated, sedated on Levophed and vasopressin with multiorgan dysfunction and abnormal echocardiogram. Patient's sister states that he is DNR and has indicated in the past that he does not want aggressive measures
GEN: Intubated and sedated. Appears older than stated age
LUNGS: CTA, no wheezes/rales
CV: Regular, positive S1-S2. 3/6 SM
ABD:distended, decreased BS
: marked scrota edema
EXT: pitting edema to thighs. distal ext cool and mottled and cyantoic
Echocardiogram personally reviewed: Left ventricle is mildly dilated with overall normal LV systolic function with a EF estimated 60%. Thickened mitral valve leaflets with moderate to severe MR. No definite mitral valve vegetation. Trileaflet
aortic valve with mobile echodensity suggestive of a vegetation associated with severe aortic regurgitation. Cannot exclude leaflet perforation. Mild to moderate aortic stenosis with peak aortic valve velocity 362 cm/s/peak/mean gradients 52/28
mmHg. Tricuspid leaflets thickened with a suggestion of tricuspid valve vegetation in certain views associated with moderate tricuspid regurgitation. Right ventricle is normal in size with echodensities neither apex of unclear etiology, cannot
exclude RV thrombus. Pleural effusion is present. IVC is dilated and does not collapse. No pericardial effusion.
Plan:
Critically ill 54-year-old gentleman with multisystem organ failure and hemodynamic instability on multiple pressors with echocardiographic consistent with aortic valve endocarditis with possible perforated leaflet and severe aortic insufficiency,
possible tricuspid valve endocarditis, possible RV thrombus who had previously been diagnosed with endocarditis at outside hospital apparently in July and signed out AMA.
-Patient unfortunately is not a surgical candidate with the amount of support he is currently requiring and comorbidities
-Empiric antibiotics and follow culture data
-Try to obtain records from [facility]
-Will start IV heparin drip
-Continue to support hemodynamics as able
-Appreciate multidisciplinary input from basin tender, nephrology, GI, and ID
-Prognosis very poor and I unfortunately do not believe he will survive
-Patient is DNR; patient's sister is leaning towards withdrawal of care/comfort care after she has had a chance to visit. She has made arrangements to fly from [place] to visit her brother which has been reportedly cleared by [facility].
Original Note:
Consultation
Consultation Request
Date/Time Consultation Requested: 02/24/25
Date/Time Consultation Performed: 02/24/25
Requesting Provider: Dr. Cameron
Performing Provider: Dr. Barragan
Reason for Consultation: Abnormal echocardiogram
Medical History
-
History of Present Illness:
Patient came to ER on 02/21/25 with fever, lethargy and change in mental status and cardiology is now consulted for abnormal echo. Patient is intubated and sedated. History obtained from nursing, basin tender and chart review. Patient came to ER from
[facility] 02/21/25 with fever, back pain, confusion and lethargy. [facility] to [facility] the patient had a h/o heroin and Fentanyl use and ER reported that patient had used drugs 2 days prior to admission, but patient
denied and said he had been sober for a year. Patient's sister reported to basin tender team that patient has a longstanding h/o drug use. Patient has a h/o Hep C and no definitive evidence that it was ever treated. In the ER a CT showed cirrhosis
and ascites, lactic acid was up and he was hypothermic. Patient was admitted and he was increasingly agitated and intermittently refused care, but was not felt to be capable of making an informed decision and was eventually intubated 02/22/25. Patient
remains intubated 02/24/25, Levophed running at 22 and Vasopressin at 0.03. He was seen by GI for ascites and he had a bedside paracentesis with high SAAG and SBP was negative. 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 Nephrology consulted for JOVAN and
gross volume overload. Patient was given Lasix 80 mg IV x1 on 02/23/25 resulting in negligible diuresis and worsening Cre. Cardiology is now consulted for abnormal echo concerning for AV veg or even perforated leaflet and possible RV thrombus.
PMH:
Untreated Hep C
h/o IVDA
Past Medical History
Past Medical History: Other (in HPI)
Past Surgical History: None
Social History
Tobacco: Former Smoker
Alcohol: Former
Drug: IVDA (heroin and Fentanyl per patient's sister)
Living: Skilled Nursing
Family History
Family History: Reviewed & Not Pertinent
Allergies / Home Medications
Allergy/AdvReac Type Severity Reaction Status Date / Time
No Known Allergies Allergy Unverified 04/27/12 12:08
�Medication �Instructions �Recorded �Confirmed �Type
azithromycin 250 mg tablet 250 mg PO DAILY Infection 02/22/25 02/22/25 History
erythromycin 5 mg/gram (0.5 %) eye 0.5 inch ophthalmic (eye) TID Eye 02/22/25 02/22/25 History
ointment Condition
furosemide 20 mg tablet 20 mg PO DAILY Fluid 02/22/25 02/22/25 History
Retention/Swelling
Review of Systems
-
Unable to obtain full review of systems at this time due to: Patient Intubation
Physical Exam
Vital Signs
Temp Pulse Resp BP Pulse Ox
98.7 F 74 25 115/39 100
02/24/25 11:07 02/24/25 11:15 02/24/25 11:15 02/24/25 10:13 02/24/25 12:03
GEN: No distress, awake, Ox3
HEENT: supple, anicteric, mmm
LUNGS: CTA, no wheezes/rales
CV: Reg, S1/S2, 1/6 syst LSB, no murmur
ABD: soft, BS+, NT/ND
EXT: No edema
NEURO: Gross non-focal
SKIN: No rash
Lab Results
02/24/25 04:07
Troponin I 0.343 ng/ml H* 02/24/25 00:13
Pyb-H-Obqyxzkvngz Pept > 32456 pg/ml 02/21/25 21:54
Impression / Plan
-
PCP: None
Card: None
Impression:
Admitted with fever, lethargy and change in mental status 02/21/25
Sepsis
Septic shock
Metabolic and lactic acidosis
TME
Acute hypoxic respiratory failure
intubated 02/22/25
Elevated Troponin
Abnormal echo 02/24/25
Moderate to severe MR by echo 02/24/25
Mild to mod , severe aortic regurgitation, echo density seen on likely noncoronary cusp c/w possible vegetation and cannot exclude perforated leaflet
Moderate TR
RV apex echo densities c/w prominent trabeculations, cannot exclude RV thrombus
ETOH use disorder
Untreated Hep C
h/o IVDA
Shock liver
Hepatic cirrhosis
JOVAN
Hyperkalemia
Anasarca, gross volume overload
Echo 02/24/25: EF 60%, LV mildly dilated, mod to sev MR, mild to mod peak/mean 52/28 mmHg and ELOINA 1.4 cm sq, echo density on likely the noncoronary cusp is c/w possible vegetation, severe aortic regurgitation with a pressure half time of 173 ms,
cannot exclude perforated leaflet. Structurally normal tricuspid valve with mod TR, normal RV with echo densities near the apex consistent with prominent trabeculations, but cannot exclude RV thrombus
Plan:
-Patient came to ER on 02/21/25 with fever, lethargy and change in mental status and cardiology is now consulted for abnormal echo. Patient is intubated and sedated. History obtained from nursing, basin tender and chart review. Patient came to ER from
[facility] 02/21/25 with fever, back pain, confusion and lethargy. [facility] to [facility] the patient had a h/o heroin and Fentanyl use and ER reported that patient had used drugs 2 days prior to admission, but patient
denied and said he had been sober for a year. Patient's sister reported to basin tender team that patient has a longstanding h/o drug use. Patient has a h/o Hep C and no definitive evidence that it was ever treated. In the ER a CT showed cirrhosis
and ascites, lactic acid was up and he was hypothermic. Patient was admitted and he was increasingly agitated and intermittently refused care, but was not felt to be capable of making an informed decision and was eventually intubated 02/22/25. Patient
remains intubated 02/24/25, Levophed running at 22 and Vasopressin at 0.03. He was seen by GI for ascites and he had a bedside paracentesis with high SAAG and SBP was negative. 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 Nephrology consulted for JOVAN and
gross volume overload. Patient was given Lasix 80 mg IV x1 on 02/23/25 resulting in negligible diuresis and worsening Cre. Cardiology is now consulted for abnormal echo concerning for AV veg or even perforated leaflet and possible RV thrombus.
-ECG reviewed by me shows sinus tachycardia.
-Echo reviewed and there is concern for AV vegetation and possible perforated leaflet. Patient is not a surgical candidate due to need for pressors, hepatic cirrhosis and JOVAN.
-Heparin gtt started for possible RV thrombus, orders placed by me.
-Blood cultures without growth 02/21/25. Repeat blood cultures q 30 min x2 ordered by me now.
-EF preserved by echo. Patient appears grossly volume overloaded, pitting edema to the low back, significant scrotal edema as well. Ingram catheter in placed. Nephrology following and Lasix 80 mg IV x1 on 02/23/25 was ineffective, patient actually
gained weight and Cre increased to 4.8. Nephrology recommending CRRT pending family wishes in terms of aggressiveness of care.
-Talked with patient's sister, Marycruz, in [place] for 16:29 min. Patient with a h/o ETOH use disorder and polysubstance use. Patient's sister last heard from him 07/2024 when he was admitted to [facility] with AV endocarditis and was
turned down for surgery due to liver issues and then signed himself out AMA and she did not hear from him again until we called to say that he was at [facility] now. Patient's sister would like to come and visit and then withdrawal care,
sister feels it will be a blessing for patient and the hardships he has endured over the years. TT to RN to check in with bedside guard on whether or not visit will be allowed from [facility] standpoint.
--- NOTE | 2025-02-24 13:45 | PTCARENOTE ---
Spoke to officers at bedside. Pt's sister, Maci, is allowed to visit per their deputy chief.
[2025-02-24] MEDS: HEPARIN 25000 UNITS/250 ML IV (14:00)
[2025-02-24 14:16] LABS: APTT 35.2 Sec (23.4-35.0)
[2025-02-24 14:32] LABS: Blood Urea Nitrogen 74 mg/dl (9-20); Calcium 5.6 mg/dl (8.4-10.2); Carbon Dioxide 12 mmol/L (22-30); Chloride 107 mmol/L (98-107); Estimated Creatinine Clearance 23 ml/min; Glucose 130 mg/dl (70-99); Potassium 4.3 mmol/L (3.5-5.1); Sodium 134 mmol/L (135-145); eGFR 18.02
--- NOTE | 2025-02-24 14:53 | CON.ID ---
Consultation
-
Date/Time Consultation Requested: 02/24/25 11:26
Date/Time Consultation Performed: 02/24/25 14:55
Requesting Provider: Dr Cameron
Performing Provider: Dr Norman
Reason for Consultation: possible endocarditis
Chief Complaint / Past History
Chief Complaint
Confusion, Weakness
History of Present Illness
Mr Smith is a 54 year old male with history notable for remote IVDU and treated Hep C who presented from [facility] for weakness and back pain. He was found on the day of arrival 02/22, in the floor of his cell, naked and covered in feces, refused to get
up due to weakness. Reports no recent drug use, last use was heroin/fentanyl more than 1 year ago. He was recently treated for possible pneumonia with a zpac and has a cough. Not previously known to be cirrhotic. He intermittently refuses
care/examinations.
Since arrival here he has been initially hypothermic to 92 at the lowest now euthermic, bp overall stable, HRs normal, wbc initially 9.4 now 9.5, hgb 8.6, plt initially 438 now 234, L shift was present on arrival, cr on arrival 3.9 now 3.8, lactic
acid is uptrending now 5.6, UA with >30 squamous cells, RBC was unable to be counted, WBC 40-50, many bacteria, Abd US: suggestion of RHF, abdominal ascites, 1.6 cm gallstone in the neck of the gallbladder, gallbladder distention, diffuse
gallbladder wall thickening. blood cultures x2 on arrival at the same time both no growth to date, urine culture finalized negative, peritoneal fluid no growth, 02/22 body fluid not consistent with SBP, UDS is negative, ASO titer positive 1:400, HIV
pendign, hep A/B/C serologies pending, hep C NAAT pending, CXR: L basilar atelectasis, resp culture in progress no growth to date, mrsa screen positive, bnp> [id number] TTE: thicken AV with possible vegetation and severe AR - possible leaflet
perforation. 02/22 he underwent intubation for pulmonary failure/acidosis, increased work of breathing, 4/6 started stress dose steroids, patient has been on zosyn, goals of care discussions are ongoing.
Past History
Additional Past Medical History:
Hep C - ? prior treatment
Substance Abuse
Noncompliance
Past Surgical History: None
Allergy History:
No Known Allergies Allergy (Unverified 04/27/12 12:08)
Medications Reviewed: Yes
Social History
Tobacco: Former Smoker
Alcohol: None
Drug: Former User (Clean for > 1 year per patient. IV heroin / fentanyl prior to that.)
Family History
Family History: Not Pertinent
Review of Systems
Review of Systems
General: Negative Fever or Chills
ROS limited by the condition of the patient
Vital Signs
Temp Pulse Resp BP Pulse Ox
98.7 F 83 25 130/58 100
02/24/25 11:07 02/24/25 14:15 02/24/25 14:15 02/24/25 14:00 02/24/25 14:15
Physical Exam
Physical Exam
Constitutional: Acutely Ill and Chronically Ill
Cardiovascular: Regular Rate, S1/S2 and Murmur (loudest at the RUSB); Negative Rub
Pulmonary: Clear and Symmetric; Negative Wheezes, Rales or Rhonchi
Gastrointestinal: Soft, Non Tender, Non Distended and Normal Bowel Sounds
Skin: Warm and Dry; Negative Rash or Jaundice
Wound: Other (x4 on extremities reviewed - no erythema, tenderness or drainage)
Neurological: Negative Awake
Lab / Diagnostic Study Results
02/24/25 04:07
02/24/25 13:46
Abs Immat Gran (auto) 0.1 10^3/uL (0-0.05) H 02/21/25 21:54
Absolute Neuts (auto) 7.8 10^3/uL (1.4-6.5) H 02/21/25 21:54
Absolute Lymphs (auto) 0.7 10^3/uL (1.2-3.4) L 02/21/25 21:54
Absolute Monos (auto) 0.8 10^3/uL (0.1-0.6) H 02/21/25 21:54
Absolute Basos (auto) 0.0 10^3/uL (0-0.2) 02/21/25 21:54
Immature Gran % 0.7 % (0-0.5) H 02/21/25 21:54
Neutrophils % 83.3 % (42.2-75.2) H 02/21/25 21:54
Lymphocytes % 7.3 % (20.5-51.1) L 02/21/25 21:54
Monocytes % 8.5 % (1.7-9.3) 02/21/25 21:54
Eosinophils % 0.0 % (0-6) 02/21/25 21:54
Basophils % 0.2 % (0-2) 02/21/25 21:54
PT 21.1 Sec (11.4-14.6) H 02/24/25 04:07
INR 1.80 02/24/25 04:07
Lactic Acid 4.4 mmol/L (0.7-2.0) H* 02/24/25 07:49
Procalcitonin 0.24 ng/ml (0.0-0.25) 02/21/25 21:54
Ur Squamous Epith Cells >30 /LPF (Few) 02/21/25 23:35
Laboratory Tests
02/22/25
09:34
Fluid WBC 67
Fluid Mononuclear Cell 88
Fl Polymorphonucl Cell 12.0
Fluid Total Protein < 2.0
Fluid Albumin < 1.0
Fluid LDH 163
Microbiology Results
Micro:
02/24/25 04:07 Respiratory Culture - Pending
Tracheal Aspirate Gram Stain - Preliminary
02/22/25 09:35 Body Fluid Culture - Preliminary
Peritoneal Fluid No Growth After 48 Hours
Gram Stain - Preliminary
02/21/25 21:54 Blood Culture - Preliminary
Blood/Venous No Growth in 48 hours- Final report to follow
02/21/25 21:54 Blood Culture - Preliminary
Blood/Venous No Growth in 48 hours- Final report to follow
02/22/25 11:31 MRSA Screen - Final
Nose Staph aureus MRSA
02/22/25 09:35 Body Fluid Culture - Preliminary
Peritoneal Fluid No Growth After 18-24 Hours
Gram Stain - Final
02/21/25 23:35 Urine Culture - Final
Urine NO GROWTH
02/22/25 11:29 Legionella Urinary Antigen - Final
Urine Negative for Legionella pneumophila Serogroup 1 antigen.
A negative result does not rule out the possiblity of
Legionella infection due to other serogroups or species of
Legionella. Clinical correlation is recommended.
Streptococcus pneumoniae Antigen (M - Final
Negative for Streptococcus pneumoniae antigen.
A negative result does not exclude infection with
Streptococcus pneumoniae. Clinical correlation is
recommended.
02/21/25 21:54 Influenza Types A & B (SANDY) - Final
Nasal Swab Negative for Influenza A & B, NAAT
Negative results must be combined with clinical observations
and patient history.
Nucleic Acid Amplification test (NAAT)performed on the
[employer] platform.
Assessment / Plan
Possible Culture negative endocarditis
AVR, possible AV vegetation
Suspected Cirrhosis, h/o Hep C reportedly treated
Remote H/o IVDU
Shock - cardiogenic vs septic
MSOF
JOVAN vs CKD vs CRS
Colonization with MRSA
Digital Ischemia
H/o noncompliance
- if febrile then would resend blood cultures x2 while febrile
- admission blood cultures from 02/21 were obtained prior to antibiotic administration here, however note recent Zpac
- resp culture pending
- SBP ruled out at admission
- note MRSA colonization
- agree with zosyn
- Patient is chronically ill with noted noncompliance, ARF, acute AVR, anasarca/decompensated cirrhosis - prognosis appears grim
-- patient is critically ill intubated on pressors
--- NOTE | 2025-02-24 15:37 | PN.CDI ---
CDI
- -
CDI:
Physician Documentation Request
Admit Date: 02/22/25 02:57
Dear Doctor Rakesh,
Patient admitted for shock, likely sepsis. Hospitalist progress note states 'acute respiratory failure'
Patient was intubated 02/22
ABG:
Laboratory Tests
02/22/25
11:49
pH 7.23 L
pCO2 28 L
pO2 256 H
HCO3 11.7 L*
Please further clarify the type of respiratory failure:
Type
Respiratory failure with hypoxia
Respiratory failure with hypercapnia
Respiratory failure with hypoxia and hypercapnia
Other, please specify
Use of terms such as suspected, likely, concern for, or probable (associated with a specific diagnosis that is being evaluated, monitored, or treated as if it exists) are acceptable and can be coded in the inpatient setting, when documented at the
time of discharge.
Thank you,
Josee Berg RN, BSN
CDI Specialist
tiger text
Please use your independent medical judgment in providing your response.
[2025-02-24] MEDS: CALCIUM GLUCONATE 290 MG IV ×2 (15:53→19:20)
--- NOTE | 2025-02-24 16:00 | PTCARENOTE ---
Pt reassessed....no major changes in assessment. Safe environment confirmed. VS documented. Will continue to monitor.
--- NOTE | 2025-02-24 17:00 | PTCARENOTE ---
Pt released from [facility]. Pt's belongings brought from [facility] and left at bedside.
[2025-02-24 18:49] LABS: Hepatitis B Surface Antigen Negative (Negative)
[2025-02-24 19:07] LABS: Hepatitis A Antibody, Total Positive (Negative); Hepatitis B Core Ab, Total Reactive (Negative); Hepatitis B Surface Antibody Negative; Hepatitis C Antibody Reactive (Negative)
--- NOTE | 2025-02-24 20:00 | PTCARENOTE ---
Rec'd pt sedated on diprivan at 25mci & fent at 50mic, donnell at 2mm, sluggish, pt becomes restless w/ stimulation, attempts to pull the tube, does not follow commands, wrsits restrained for safety, SR, R axillary art line w/ good wave form, flushes
well , accurate to cuff, double conc levo at 20 solomon,vasopressin at 0.03 units, goal MAP > 65, hep gtt at 1000, doppler distal pulses, weak radial, toes, top of feet and fingers cyanotic, + anasarca, # 8 oral ett moved to R side at 24cm, ac 25, tv
450, 8 peep, 40% fio2, sat 100, lungs decr & coarse, sm amt nunez secretions via ett, oral salem to low inter suction draining sm amt brown/green liquid, irrigated q4h w/ 30ml h20, abd round, ascites, hypo bowel sounds, no vomiting, thermister de souza
w/ yellow urine- oliguric
[2025-02-24 20:21] LABS: APTT 47.2 Sec (23.4-35.0)
[2025-02-24 20:26] LABS: Lactic Acid 5.3 mmol/L (0.7-2.0)
[2025-02-24 20:29] LABS: Hepatitis A IgM Antibody Negative (Negative); Hepatitis B Core Ab, IgM Negative (Negative)
[2025-02-24] MEDS: SUBLIMAZE 100 IV (20:50)
[2025-02-25] VITALS (8 sets, daily range): BP systolic 97–136; BP diastolic 45–72; BMI 27.4
--- NOTE | 2025-02-25 00:22 | PTCARENOTE ---
sys reviewed, changes noted, R 2nd,3rd & 4th fingers increasingly cyanotic, R radial pulse via doppler- B Alex, CABINET ABRASIVE SANDBLASTER aware, distal pulses via doppler, feet cyanotic, CHG bath done, linens changed
[2025-02-25 00:44] LABS: ANA, IgG Reflex to HEp-2 None Detected (None Detected)
[2025-02-25] MEDS: PITRESSIN 100 IV ×2 (02:10→13:07)
[2025-02-25 02:21] LABS: Hematocrit 27.8 % (39.0-52.0); Hemoglobin 8.3 g/dL (13.0-18.0); Mean Corp Hgb Conc. 29.9 g/dL (33.0-37.0); Mean Corpuscular Hgb 19.3 pg (27.0-31.0); Mean Corpuscular Volume 64.8 fL (80.0-94.0); Mean Platelet Volume 10.7 fL (7.4-10.4); Platelet Count 205 10^3/uL (130-400); Red Blood Cell Count 4.29 10^6/uL (4.70-6.10); Red Cell Dist. Width 19.1 % (11.5-14.5); White Blood Cell Count 13.6 10^3/uL (4.8-10.8)
[2025-02-25 02:30] LABS: APTT 64.3 Sec (23.4-35.0)
[2025-02-25 03:14] LABS: Lactic Acid 5.5 mmol/L (0.7-2.0)
[2025-02-25 03:16] LABS: ALT (SGPT) 1951 U/L (0-50); Albumin 2.3 g/dl (3.5-5.0); Alkaline Phosphatase 126 U/L (38-126); Blood Urea Nitrogen 96 mg/dl (9-20); Calcium 7.5 mg/dl (8.4-10.2); Carbon Dioxide 12 mmol/L (22-30); Chloride 99 mmol/L (98-107); Direct Bilirubin 1.7 mg/dl (0.0-0.4); Estimated Creatinine Clearance 17 ml/min; Glucose 157 mg/dl (70-99); Potassium 5.6 mmol/L (3.5-5.1); Sodium 132 mmol/L (135-145); Total Protein 5.3 g/dl (6.3-8.2); Triglycerides 177 mg/dl (10-149); eGFR 12.66
--- NOTE | 2025-02-25 03:19 | PTCARENOTE ---
Diego Johnson NP aware of critical lab results
[2025-02-25] MEDS: ZOSYN 50 IV ×3 (03:27→15:53)
[2025-02-25 03:38] LABS: AST (SGOT) 1400 U/L (17-59)
[2025-02-25] MEDS: SODIUM BICARBONATE 50 MEQ IV ×4 (03:45→17:57)
--- NOTE | 2025-02-25 03:45 | PTCARENOTE ---
2 amps sodium bicarb iv given per order, sys reviewed, poor urine output- B Johnson, MOLDED GOODS CONTROLS OPERATOR aware, salem now w/ some bloody drainage- B Alex, MOLDED GOODS CONTROLS OPERATOR aware, will cont to monitor
--- NOTE | 2025-02-25 04:00 | PTCARENOTE ---
10 units reg ins iv, 1 amp d50 iv , 3 gm oriana gluc over 1hr given per order
[2025-02-25] MEDS: DEXTROSE 50% SYRINGE 25 GRAMS IV (04:02)
[2025-02-25] MEDS: NOVOLIN R 10 UNITS IV (04:02)
[2025-02-25 04:03] LABS: Glucose - Point of Care 145 mg/dl (70-99)
[2025-02-25] MEDS: CALCIUM GLUCONATE 130 MG IV (04:09)
[2025-02-25] MEDS: LEVOPHED 258 MG IV ×3 (04:11→17:50)
[2025-02-25 04:58] LABS: Glucose - Point of Care 187 mg/dl (70-99)
[2025-02-25] MEDS: SOLU-CORTEF 50 MG IV ×3 (05:04→17:03)
[2025-02-25] MEDS: DIPRIVAN 100 IV ×3 (05:34→19:17)
[2025-02-25 05:56] LABS: Glucose - Point of Care 174 mg/dl (70-99)
--- NOTE | 2025-02-25 07:18 | W.PN.INTV ---
Addendum entered and electronically signed by Lore Palmer DO 02/25/25 17:09:
Spoke with sister on the phone, just flew into [place] now from [place]
She is planning to come in with her cousin eleuterio and may decide to w/d when she gets here
She will let us know, will sign out to night coverage and CCRN
Original Note:
Today's Communication / Plan
Recommendations
ECHO reviewed, agree with IV heparin
Pressors are slowly weaning, not significantly improved
Creat worsening today, renal following
Overall prognosis is poor, awaiting family member arrival as she is likely to w/d care
Assessment
-
54 year old M with history of longstanding history of IV drug use, history of hepatitis C, presented from senior living with back pain, weakness. He reportedly had some cough prior to admission and was treated with antibiotics, details unavailable. On
the day of admission, he was found on the floor in his cell, naked and covered in feces. He was refusing care and complained of weakness. He was brought to the emergency room. He was noted to have metabolic acidosis with elevated lactic acid,
acute kidney injury. In view of severe acidosis, elevated lactate, intake worker service was requested for further input. 02/22, patient continued to have fluctuating mental status, acidosis, oligoanuria as well as intermittent episodes of tachypnea
alternating with normal respiratory rate. Patient also exhibited intermittent aggressive behavior, or intermittent refusal of care. In view of increasing work of breathing, acidosis, patient was intubated and mechanically ventilated. Adm to ICU.
Shock, severe metabolic acidosis with lactic acid elevation
Acute respiratory failure with pneumonia.
Acute kidney injury with hyperkalemia and Anuria.
Acute on chronic liver injury, history of HCV related cirrhosis.
Bilateral pleural effusion and anasarca noted on CT.
Acute metabolic encephalopathy
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
History of polysubstance abuse, noncompliance
Kidney stones
Hep C, IVDU
Incarcerated status
Abscess of axilla s/p I&D 2011
Plan
Sedation, fent/prop
Wean as tolerated
IV drug use history; Patient reports not having had a drink in more than a year
Observe for w/d
RASS goal -2
On pressors, levophed @19, vasopressin -- slow wean
Differential diagnosis includes septic shock due to Pneumonia, cardiogenic shock versus severe liver failure with hepatorenal syndrome
Echocardiogram demonstrating vegetation on AV, severe AR noted -- indicating culture-negative Endocarditis
Early cyanotic changes noted in bilateral fingertips and toes, suggestive of poor perfusion
Start stress dose steroids, hydrocortisone 50 every 6 hours
Mottling on exam
Agree with IV heparin
Vent dependant
Bilateral pneumonia vs atelectasis on imaging. Patient coughing and was reportedly treated with Z-pack prior to admission
S/p intubation on 02/22.
Currently on volume control 450 x 20 5 x 40% x 5, PEEP was subsequently increased to 8 due to desaturations noted with position change.
ABG 7.45, 22, 166. PF ratio 400
Send tracheal aspirate
Chest x-ray in a.m.--reviewed/not impressive for PNA on my review
Peripheral oxygen saturation measurement does not match with the blood gas, related to peripheries being cold with early cyanosis
Hold off on SBT while pressor requirements are high
JOVAN noted--worsening, creat now 5.3
Differential diagnosis includes hepatorenal syndrome, need to rule out other etiologies including prerenal, ATN etc.
Nephrology consult
Status post IV fluid resuscitation, had been on isotonic bicarb infusion.
Significant positive fluid balance, anasarca, discontinue bicarb drip.
Albumin 100 g, 25%, given on 02/22 for concern of hepatorenal syndrome
Continue Levophed
Check UA, urine electrolytes
Lasix IV trial today in view of anuria and worsening hypervolemia
Bicarb pushes PRN
Possible septic shock
Lactate went from 8 down to 2.8, now trending back up at 4 this morning
Continue broad-spectrum antibiotic vancomycin and Zosyn. White count is normal, patient continues to be afebrile, no growth on cultures so far
Blood cultures, urine cultures, chest x-ray and CT abdomen pelvis reviewed.
Sputum pending
02/22, Bedside paracentesis performed, cell count not suggestive of SBP, await final ascitic fluid cultures
NPO for now, intubated
INR 1.78 (mild coagulopathy), platelets normal, ammonia normal, albumin 2.0
SBP ruled out. Ascites is not large, hold off further paracentesis/less likely
GI service on case
Worsening LFT this morning, likely related to shock liver
Ultrasound abdomen shows passive hepatic venous congestion with small volume of ascites and incidental cholelithiasis.
Suspect this is related to underlying cirrhosis and hypoalbuminemia
Multifactorial in view of uremia, underlying worsening liver function, shock, pneumonia
Currently intubated and sedated
Prognosis is poor-- currently sister on way to and likely to withdraw care, await family member arrival today
Family Discussions
Fred: After we were allowed to contact patient's family by the officer in room, I called patient's Sister Maci, (02/22) phone #[phone]. Maci told me that patient has longstanding history of noncompliance with medical treatment, has been
homeless, recent hospitalization for pneumonia. She also stated prior hospitalization for fentanyl overdose as well as prior history of heroin use. She also reported that patient has had history of aggressive behavior at times and signs out of
hospitals AGAINST MEDICAL ADVICE. She also told me that patient has expressed to her that in the event of cardiorespiratory arrest, he would not want chest compressions, shocks or resuscitation hence CODE STATUS to be changed to DNR.
Fred Family update 02/23: I called his sister and DANA, Maci @ [phone], and updated her about patient's critical condition. I updated her regarding worsening renal function and possible need for renal replacement therapy in near future. She
asked if she could visit understanding that patient is currently incarcerated. I discussed with the officers at bedside who told me that considering patient is critically ill, family can visit him. Information passed on to Maci. We discussed
CODE STATUS again and she confirmed DNR CODE STATUS.
Diagnostic Data
Chest X-Ray: 02/24/25- Large left basilar opacification compatible with atelectasis and/or pneumonia and possible small left pleural effusion without significant change.
02/23/25- 1. Endotracheal tube in place terminating at nearly the level of the jamal.
2. Large left lower lobe airspace consolidation which appears to have increased since 02/22/2025 (either left lower lobe pneumonia or atelectasis).
3. Small left pleural effusion.
4. Mild peripheral airspace opacity in the right midlung (either pneumonia or atelectasis) which appears unchanged.
5. Mild to moderate cardiomegaly.
CT Scan: AP 02/22/25- 1. SEVERE DIFFUSE ANASARCA.
2. Small volume of abdominal and pelvic ascites.
3. Mild hepatic cirrhosis.
4. Diffuse small bowel and colonic wall thickening.
5. Right indirect inguinal hernia containing a 10 cm peritoneal fluid collection.
6. Mild to moderate bilateral renal cortical volume loss.
7. MODERATE CARDIOMEGALY.
8. Small bilateral pleural effusions.
9. Small subpleural airspace consolidations in the lower lobes of both lungs (either pneumonia or subsegmental atelectasis).
Echo: 02/24/25- Left ventricle is mildly dilated. Normal left ventricular wall thickness. Normal regional wall motion. Normal left ventricular systolic function. Left ventricular ejection fraction is 60% by Abarca's biplane method of discs.
Diastolic function indeterminate. Thickened mitral valve leaflets. Mitral valve opens normally. Moderate to severe mitral regurgitation. Trileaflet aortic valve. Thickened aortic valve with restricted leaflet motion. Mild to moderate aortic
stenosis. Peak/mean gradients across the valve are 52/28 mmHg. Using an LVOT of 2.0 cm the calculated valve area is 1.4 cm2. Echo density is seen on likely the noncoronary cusp is consistent with possible
vegetation. Severe aortic regurgitation with a pressure half time of 173 ms. Cannot exclude perforated leaflet. Structurally normal tricuspid valve. Tricuspid valve opens normally. Moderate tricuspid regurgitation. Estimated pulmonary artery
pressure of 15 mmHg, assuming a right atrial pressure of 15 mmHg. Normal right ventricular size. Echo densities are seen near the apex consistent with prominent trabeculations. Cannot exclude RV thrombus. Pleural effusion present. Consider EWA
if clinically indicated.
PFT's:
Reports and relevant images were personally reviewed.
Critical Care time 45 mins -- The patient is admitted for acute critical illness for the treatment of vital organ failure and/or prevention of further life-threatening conditions. Total care includes time spent in review of history, physical exam,
medications, hemodynamic/ventilator parameters, laboratory data, imaging and discussion with house staff, pharmacy, respiratory therapy, six horse hitch driver, and nursing. This time did not include the time spent on performing procedures.
Subjective Dataa
Subjective Data
Date of Service:
Date of Service: February 25, 2025
Chief Complaint: Environmental Air Specialist Follow Up
Subjective:
Remains critically ill, no events ON
Remains intubated on pressors
Objective Data
Data Reviewed
Vital Signs / I&O / Oxygen:
Vital Signs
Temp Pulse Resp BP Pulse Ox
98.6 F 74 25 113/48 94
02/25/25 03:37 02/25/25 06:00 02/25/25 06:00 02/25/25 04:00 02/25/25 06:00
Intake and Output
02/24/25 02/25/25 02/26/25
06:59 06:59 06:59
Intake Total 2496.2 / 2563.5 2628.4 / 2628.4
Output Total 820 / 847 710 / 710
Balance 1676.2 / 1716.5 1918.4 / 1918.4
SaO2 [SIMV] 86
SaO2 [A/C] 100
SaO2 94
Physical Exam
General: Comfortable and Other (NAD)
HEENT: Normocephalic, Anicteric and Moist Mucous Membranes
Cardiovascular: S1-S2, Regular Rhythm, Peripheral Edema (+ edema, tight skin on LEs, mottling noted) and Cool Extremities
Respiratory: Clear, Non-Labored Respirations and ET Tube
GI: Soft and Non Distended
Neurology: Unresponsive, Lethargic and Non Verbal
Skin: Cyanosis (Moderate cyanosis noted on fingertips, toes bilaterally)
Labs/Micro/Reports
Lab Data
02/25/25 02:08
Laboratory Results
02/24/25 02/24/25 02/25/25
13:58 20:00 02:08
APTT 35.2 H 47.2 H 64.3 H
Microbiology
02/21/25 21:54 Blood/Venous Blood Culture - Preliminary
No Growth in 72 hours- Final report to follow
02/21/25 21:54 Blood/Venous Blood Culture - Preliminary
No Growth in 72 hours- Final report to follow
02/22/25 09:35 Peritoneal Fluid Body Fluid Culture - Preliminary
No Growth After 48 Hours
02/22/25 09:35 Peritoneal Fluid Gram Stain - Final
02/24/25 04:07 Tracheal Aspirate Gram Stain - Preliminary
02/22/25 09:35 Peritoneal Fluid Body Fluid Culture - Preliminary
No Growth After 48 Hours
02/22/25 09:35 Peritoneal Fluid Gram Stain - Preliminary
02/22/25 11:31 Nose MRSA Screen - Final
Staph aureus MRSA
02/21/25 23:35 Urine Urine Culture - Final
NO GROWTH
02/22/25 11:29 Urine Legionella Urinary Antigen - Final
Negative for Legionella pneumophila Serogroup 1 antigen.
A negative result does not rule out the possiblity of
Legionella infection due to other serogroups or species of
Legionella. Clinical correlation is recommended.
02/22/25 11:29 Urine Streptococcus pneumoniae Antigen (M - Final
Negative for Streptococcus pneumoniae antigen.
A negative result does not exclude infection with
Streptococcus pneumoniae. Clinical correlation is
recommended.
[2025-02-25 07:42] LABS: Glucose - Point of Care 159 mg/dl (70-99)
[2025-02-25] MEDS: SENNA SYRUP 8.8 MG TUBE ×2 (07:47→19:03)
[2025-02-25] MEDS: MIRALAX 17 GRAMS TUBE (07:47)
[2025-02-25] MEDS: NSS (PRESERVATIVE FREE) 10 ML IV (07:47)
[2025-02-25] MEDS: PROTONIX IV 40 MG IV (07:47)
--- NOTE | 2025-02-25 08:55 | W.PN.ID1 ---
Date of Service
Date of Service: February 25, 2025
Today's Communication
- agree with desiree
- Patient is chronically ill with noted noncompliance, ARF, acute AVR, anasarca/decompensated cirrhosis - prognosis appears grim
-- patient remains critically ill intubated on pressors; would agree with transition to comfort care. The plan is for family visit later today then transition
Assessment / Plan
Possible Culture negative endocarditis
AVR, possible AV vegetation
Suspected Cirrhosis, h/o Hep C reportedly treated
Remote H/o IVDU
Shock - cardiogenic vs septic
MSOF
JOVAN vs CKD vs CRS
Colonization with MRSA
Digital Ischemia
H/o noncompliance
- if febrile then would resend blood cultures x2 while febrile
- admission blood cultures from 02/21 were obtained prior to antibiotic administration here, however note recent Zpac
- resp culture pending
- note MRSA colonization
- agree with lilliesyn
- Patient is chronically ill with noted noncompliance, ARF, acute AVR, anasarca/decompensated cirrhosis - prognosis appears grim
-- patient remains critically ill intubated on pressors; would agree with transition to comfort care. The plan is for family visit later today then transition
Chief Complaint
-: Other (Possible culture negative endocarditis)
Subjective / Review of Systems
remains afebrile
minimal improvement in pressor requirements
increased distal cyanosis
Vital Signs / Physical Exam
Vital Signs
Vital Signs
Temp Pulse Resp BP Pulse Ox
98.3 F 72 25 122/48 98
02/25/25 08:00 02/25/25 07:30 02/25/25 07:30 02/25/25 06:00 02/25/25 08:19
Physical Exam
Constitutional: Acutely Ill and Chronically Ill
Cardiovascular: Regular Rate, S1/S2 and Murmur (loudest RUSB); Negative Rub
Pulmonary: Clear and Symmetric; Negative Wheezes or Rales
Gastrointestinal: Soft, Non Tender, Non Distended and Normal Bowel Sounds
Extremities: Cyanosis
Skin: Warm and Dry; Negative Rash or Jaundice
Wound: Other
Neurological: Negative Awake
Objective Data
Lab Data
Lab Results
02/25/25 02:08
PT 21.1 Sec (11.4-14.6) H 02/24/25 04:07
INR 1.80 02/24/25 04:07
APTT 64.3 Sec (23.4-35.0) H 02/25/25 02:08
Estimated Creat Clear 17 ml/min 02/25/25 02:08
Lactic Acid 5.5 mmol/L (0.7-2.0) H* 02/25/25 02:07
Total Bilirubin 2.0 mg/dl (0.2-1.3) H 02/25/25 02:08
AST 1400 U/L (17-59) H* 02/25/25 02:08
ALT 1951 U/L (0-50) H* 02/25/25 02:08
Alkaline Phosphatase 126 U/L (38-126) 02/25/25 02:08
Most recent labs reviewed.
Laboratory Tests
02/25/25
02:08
Sodium 132 L
Potassium 5.6 H D
Carbon Dioxide 12 L*
BUN 96 H
Creatinine 5.1 H*
Calcium 7.5 L D
Micro Results:
02/21/25 21:54 Blood Culture - Preliminary
Blood/Venous No Growth in 72 hours- Final report to follow
02/21/25 21:54 Blood Culture - Preliminary
Blood/Venous No Growth in 72 hours- Final report to follow
02/24/25 20:02 Blood Culture - Pending
Blood/Venous
02/24/25 19:52 Blood Culture - Pending
Blood/Venous
02/22/25 09:35 Body Fluid Culture - Preliminary
Peritoneal Fluid No Growth After 48 Hours
Gram Stain - Final
02/24/25 04:07 Respiratory Culture - Pending
Tracheal Aspirate Gram Stain - Preliminary
02/22/25 09:35 Body Fluid Culture - Preliminary
Peritoneal Fluid No Growth After 48 Hours
Gram Stain - Preliminary
02/22/25 11:31 MRSA Screen - Final
Nose Staph aureus MRSA
02/21/25 23:35 Urine Culture - Final
Urine NO GROWTH
02/22/25 11:29 Legionella Urinary Antigen - Final
Urine Negative for Legionella pneumophila Serogroup 1 antigen.
A negative result does not rule out the possiblity of
Legionella infection due to other serogroups or species of
Legionella. Clinical correlation is recommended.
Streptococcus pneumoniae Antigen (M - Final
Negative for Streptococcus pneumoniae antigen.
A negative result does not exclude infection with
Streptococcus pneumoniae. Clinical correlation is
recommended.
02/21/25 21:54 Influenza Types A & B (SANDY) - Final
Nasal Swab Negative for Influenza A & B, NAAT
Negative results must be combined with clinical observations
and patient history.
Nucleic Acid Amplification test (NAAT)performed on the
[employer] platform.
--- NOTE | 2025-02-25 09:05 | PTCARENOTE ---
report received, assessments per work list. patient arouses to tactile stimuli, shaking head no'. does not follow commands. restraints maintained for patient safety. monitor nsr, right axillary arterial line with good blood return, wave and cuff
correlation. right subclavian triple lumen patent for gtts per work list. cyanotic feet and hands. doppler pulses. ett to vent, suctions for moderate amount nunez white secretions. protective foam placed under nares to prevent rubbing of ETT denton.
ogt placement verified. de souza in place. oliguric. +4 scrotal edema, +3 anasarca. see wound documentation. labs sent, results pending
--- NOTE | 2025-02-25 09:06 | W.PN.NEPH.PH ---
Today's Communication / Plan
-
await sister's arrival
Assessment/Plan
-
54-year-old male with past medical history of substance abuse and anxiety presenting to the ER with correctional officers for evaluation of a multitude of concerns including questionable fevers, cough, back pain, altered mental status/confusion,
Impression.
Acute kidney injury.
Acute metabolic acidosis.
History of hepatitis C.
Hyperkalemia.
Transaminitis.
Anasarca.
Plan.
worsening JOVAN, would require CRRT but sister had decided on no aggressive care
follow BMP
additional Bicarb
continue pressors
keep MAP > 65
lactate daily
critical care time 31 minutes
-
-
Date of Service: February 25, 2025
CC / HPI / ROS
-
Chief Complaint:
Altered mental status
shock
History of Present Illness:
Patient presents from [facility] acute kidney injury intubated and history of hepatitis C
JOVAN/Cr worse to 5.1
acidosis stable 12
K remains high 5.6
LFTs stalled elevated
critically ill in ICU on pressors/vent
Review of Systems:
intubated sedated
Labs
-
Labs:
WBC 13.6 10^3/uL (4.8-10.8) H 02/25/25 02:08
RBC 4.29 10^6/uL (4.70-6.10) L 02/25/25 02:08
Hgb 8.3 g/dL (13.0-18.0) L 02/25/25 02:08
Hct 27.8 % (39.0-52.0) L 02/25/25 02:08
Plt Count 205 10^3/uL (130-400) 02/25/25 02:08
eGFR 12.66 02/25/25 02:08
Phosphorus 9.3 mg/dl (2.5-4.5) H 02/22/25 04:13
Jat-S-Dcrlxlqbjxz Pept > 73187 pg/ml 02/21/25 21:54
Albumin 2.3 g/dl (3.5-5.0) L 02/25/25 02:08
Physical Exam
-
Vital Signs:
Vital Signs
Temp Pulse Resp BP Pulse Ox
98.3 F 71 25 120/45 96
02/25/25 08:00 02/25/25 09:00 02/25/25 08:15 02/25/25 07:55 02/25/25 09:00
Cardiovascular:: Regular rate and rhythm
Respiratory:: Bilateral: Coarse
Lung Excursion:: Normal
Abdomen:: Nontender and Soft
Bowel Sounds:: Decreased
Extremity Edema:: +3: Bilateral:
[2025-02-25 09:32] LABS: APTT 61.9 Sec (23.4-35.0)
[2025-02-25 09:32] LABS: Glucose - Point of Care 180 mg/dl (70-99)
[2025-02-25] MEDS: HEPARIN 25000 UNITS/250 ML IV (09:49)
[2025-02-25 09:56] LABS: Blood Urea Nitrogen 97 mg/dl (9-20); Calcium 7.4 mg/dl (8.4-10.2); Carbon Dioxide 15 mmol/L (22-30); Chloride 99 mmol/L (98-107); Estimated Creatinine Clearance 16 ml/min; Glucose 168 mg/dl (70-99); Potassium 5.3 mmol/L (3.5-5.1); Sodium 132 mmol/L (135-145); eGFR 12.09
[2025-02-25] MEDS: SUBLIMAZE 50 MCG IV ×6 (10:18→20:19)
--- NOTE | 2025-02-25 12:11 | PTCARENOTE ---
patient reassessed. reviewed critical labs with medical claims assistant this am during rounds. no new orders at this time. increased nonverbal pain cues, restlessness. see MAR.. fentanyl titration per work list. awaiting sister to arrive for goals of care
discussions
--- NOTE | 2025-02-25 12:19 | W.PN.HOSP.TC ---
Addendum entered and electronically signed by Refugio Cameron MD 02/27/25 13:21:
#Acute respiratory failure likely 2/2 TME 2/2 Severe metabolic acidosis, elevated lactate unclear if hypoxemia played a role prior to intubation
Addendum entered and electronically signed by Refugio Cameron MD 02/26/25 12:30:
Nonischemic myocardial injury
other Severe metabolic acidosis, elevated lactate
Original Note:
Today's Communication/Plan
-
Probably will require CRRT unless family decides for comfort measures
Continue with antibiotic
Wean pressors as tolerated
Prognosis guarded
Assessment / Plan
Assessment / Plan
Patient is a 54y M with PMH significant for substance abuse and Hep C who presents to ED from long-term for evaluation of weakness, mental status change, fatigue.
Decompensated in am and is now sedated and intubated. Emergency paracentesis performed yesterday.
#Shock likely septic likely secondary to suspected endocarditis versus low likelihood of pneumonia
On 2 pressors.
Continue with stress dose steroids
Wean pressors as tolerated
On IV Zosyn
Initial blood cultures remains negative
Status post diagnostic paracentesis negative for SBP
Tracheal aspirate in lab
Urine culture negative
Influenza and COVID was negative
Eventually may require EWA
HIV is pending. Hepatitis C antibody reactive and reflux is pending.
ECHO TTE 60%. Echo density is seen on likely the noncoronary cusp is consistent with possible vegetation. Severe aortic regurgitation
Infectious disease following
#Acute toxic metabolic encephalopathy
#Acute respiratory failure
Status post intubation and sedation and on mechanical ventilation
Monitor mentation post extubation
#Decompensated liver cirrhosis secondary to suspected hepatitis C
HCV RNA quantitative is pending
Status post diagnostic paracentesis and fluid studies negative
Diuresis being managed by nephrology
Gastroenterology signed off
Suspected shock liver in the setting of severe shock
Continue to trend CMP
Continue to trend till peak.
# Possible right ventricular thrombus
On IV heparin per cardiology
#Lactic acidosis likely type B
Can hold off on further trending it
#Acute kidney injury likely secondary to AIN/ATN/prerenal versus low likelihood of HRS
Complicated by Hyperkalemia and metabolic and lactic Acidosis
No evidence of urinary retention, obstruction, etc on CT.
Status post IV fluids
Monitor for any new symptoms,
Bladder scan protocol.
Status post sodium bicarbonate
Follow for improvement in renal function.
Started on diuresis per nephrology. Creatinine continues to worsen.
Probably will require CRRT
#Hypothermia - Unclear etiology. ? related to cirrhosis vs infection
TFTs with moderately elevated TSH but normal T4.
Recent cough - COVID / flu negative. Chest imaging with b/l effusions and likely associated atelectasis and/or pneumonia.
Procal done in the ED was low.
Supportive care. Follow for improvement with correction in lactic acidosis.
Now intubated
# Abnormal Troponin - Suspect non-VA Elevation, supply/demand missmatch
- Trop = 0.183 on initial set. now 0.505. Likely secondary to acute illness / acidosis / etc.
- No chest pain or dyspnea.
- EKG with out evident ischemic changes.
- Follow troponin to peak. Monitor for any chest pain or other symptoms.
- Echo with normal left ventricular thickness, wall motion and function. EF 60%. Diastolic function indeterminate. Moderate to severe mitral regurgitation. Echo density is seen on likely the noncoronary cusp is consistent with possible
vegetation. Severe aortic regurgitation
Microcytic Anemia - Unknown acuity / etiology. worsening
- Heme test stools, check iron studies, etc.
- Follow for changes in H&H or any evidence of gross blood loss.
- transfuse if H/H < 7.0
DVT Prophylaxis: Subcut Heparin
Code Status: DNR
Supposedly sister arriving from [place] as patient has been released from long-term
remains critically ILL. prognosis guarded
Total Critical Care Time 38 minutes. I was immediately available to the patient and staff. I personally examined, reviewed labs, diagnostic images/reports, interpretations, treatment plans, discussed patient care with other providers and
family or caregivers (if patient is unable to make decisions), entered orders as appropriate and documented the medical record.
Anticipated Discharge: > 48 hours
Subjective/Interval History
-
Date of Service: February 25, 2025
Released from [facility]
Remains intubated and sedated
Remains on pressors
On IV heparin
Remains with anasarca
Objective Data
-
Labs:
Laboratory Results
02/25/25 02/25/25 02/25/25
02:08 09:00 16:00
WBC 13.6 H
Hgb 8.3 L
Hct 27.8 L
Plt Count 205
APTT 64.3 H 61.9 H Pending
Sodium 132 L 132 L
Potassium 5.6 H D 5.3 H
Chloride 99 99
Carbon Dioxide 12 L* 15 L
BUN 96 H 97 H
Creatinine 5.1 H* 5.3 H*
Glucose 157 H 168 H
Calcium 7.5 L D 7.4 L
Total Bilirubin 2.0 H
AST 1400 H*
ALT 1951 H*
Alkaline Phosphatase 126
Vital Signs:
Vital Signs
Temp Pulse Resp BP Pulse Ox
98.3 F 71 25 120/45 100
02/25/25 08:00 02/25/25 12:00 02/25/25 12:00 02/25/25 07:55 02/25/25 12:00
I&O
02/24/25 02/25/25 02/26/25
06:59 06:59 06:59
Intake Total 2496.2 / 2563.5 2628.4 / 2704.9 662.5 / 662.5
Output Total 820 / 847 710 / 735 120 / 120
Balance 1676.2 / 1716.5 1918.4 / 1969.9 542.5 / 542.5
Physical Exam
-
General: Intubated and Appears Chronically Ill
HEENT: Nose Appears Normal and Ears Appear Normal
Respiratory: Decreased Breath Sounds
Cardiac: Regular Rhythm, S1/S2 and Murmur
GI: Soft, Nontender and Nondistended
Musculoskeletal: No Clubbing, No Cyanosis, Edema, Right Upper Extrem, Edema, Left Upper Extrem, Edema, Right Lower Extrem, Edema, Left Lower Extrem and Other (Bilateral feet mottled)
Skin: Warm and Dry
Neuro: Sedated
Psych: Calm
[2025-02-25] MEDS: SUBLIMAZE 100 IV (14:23)
[2025-02-25 14:51] LABS: HIV Combo Negative (Negative)
--- NOTE | 2025-02-25 15:02 | PN.CDI ---
CDI
- -
CDI:
Physician Documentation Request
Admit Date: 02/22/25 02:57
Dear Doctor Rakesh,
Patient presents to ED complaining of fevers, cough, back pain, altered mental status/confusion and generalized weakness.
Troponin elevated.
ED discharge problems include 'NSTEMI'
Hospitalist progress notes state 'Abnormal Troponin - Suspect non-RI Elevation, supply/demand missmatch'
In an attempt to clarify potentially conflicting documentation, please clarify the etiology of the elevated troponin
NSTEMI
No ischemic myocardial injury
Type II RI demand ischemia
Other
Use of terms such as suspected, likely, concern for, or probable (associated with a specific diagnosis that is being evaluated, monitored, or treated as if it exists) are acceptable and can be coded in the inpatient setting, when documented at the
time of discharge.
Thank you,
Josee Berg RN, BSN
CDI Specialist
tiger text
Please use your independent medical judgment in providing your response.
--- NOTE | 2025-02-25 15:28 | CM ---
CM follwoing re: discharge planning.
Discussed in rounds, reviewed pt's chart, met with pt.
Per chart review, pt released from [facility] yesterday, remains intubated, continue supportive care.
CM will follow to locate the family.
D/C plan: uncertain at this time and will de[end on pt's progress.
--- NOTE | 2025-02-25 15:56 | PTCARENOTE ---
patient reassessed, incontinent loose stool, rectal trumpet placed. air cushion placed under scrotum to protect from trumpet tubing. prn fentanyl per jan. propofol adjustment per work list
[2025-02-25 16:13] LABS: APTT 116.1 Sec (23.4-35.0)
[2025-02-25 18:12] LABS: Glomerular Base Membrane Ab 0 AU/mL (0-19); Myeloperoxidase Antibody 0 AU/mL (0-19); Serine Protease-3, IgG 1 AU/mL (0-19)
--- NOTE | 2025-02-25 19:19 | PTCARENOTE ---
Rec'd pt awake, does not follow commands, restless, fent 50mic bolus, fent gtt incr to 175mic, dip gtt incr 25 solomon, wrists restrained for pt safety, SR, R axillary a line w/ good wave form, flushes well, accurate to cuff, to keep map > 65, double
conc levo at 18 solomon, vaso at 0.03 units, hep at 1400 units, doppler pulses, hand/feet cyanotic, + anasarca, #8 oral ett- 24 cm moved to left, ac 25, tv 450, 8 peep, 40%, lungs coarse, decr, sat 100, + bowel sounds, rectal trumpet draining brown
loose stool, oral [place] to low inter suction draining brown, de souza w/ scan urine output
Sister- merlene & cousin arrived at 715- updated on pt, will discuss plan w/ [employer] after visiting w/ pt for a while
--- NOTE | 2025-02-25 20:02 | PTCARENOTE ---
Melia Zabala NP spoke w/ sister- merlene- plan to withdrawal care
[2025-02-25] MEDS: ATIVAN 2 MG IV (20:18)
--- NOTE | 2025-02-25 20:19 | W.PN.UPDATE ---
Update Note
Progress Note Update
Spoke with family at bedside, they would like to transition to comfort measures with terminal extubation. Poor prognosis overall and answered all questions. Comfort care medications ordered with fentanyl gtt and prns, terminal extubation by
respiratory therapist, RN updated on orders and family wishes.
--- NOTE | 2025-02-25 20:20 | PTCARENOTE ---
ativan 2mg iv give, fent 50 solomon, diprivan off
2029 extubated to RA, pt comfortabel, family at bedside
--- NOTE | 2025-02-25 20:30 | RESPNOTE ---
Pt extubated for withdraw of vent./comfort measures
--- NOTE | 2025-02-25 20:51 | PTCARENOTE ---
asystolic, pronounced by Melia Zabala NP, family at bedside, - given belongings when left, [facility] [employer] notified
--- NOTE | 2025-02-25 21:31 | W.PN.DEATH ---
Pronouncement of
-
Called to see patient to pronounce.
No spontaneous heart tones or respirations noted.
Patient not responsive to verbal stimuli.
Patient is pronounced .
Time of : 20:51
Date of : 02/25/25
Cause of : sepsis, pneumonia
Family Notified: Yes (family at bedside at time of )
--- NOTE | 2025-02-25 22:10 | PTCARENOTE ---
transported to [facility]
--- NOTE | 2025-02-26 09:33 | W.DCSUMMARY ---
Discharge Summary
Discharge Data
Date of Admission: 02/22/25
Date of Discharge: 02/25/25
-
Pending Results: No
Hospital Course
Patient is a 54y M with PMH significant for substance abuse and Hep C who presents to ED from retirement for evaluation of weakness, mental status change, fatigue. Patient was found to have decompensated liver cirrhosis which was deemed secondary to
his hepatitis C. Patient was also found to be in severe metabolic and lactic acidosis. Patient was found to be in shock and required 2 pressors. Patient was intubated. Patient was evaluated by pulmonary critical care, gastroenterology,
cardiology. Patient was found to be in severe JOVAN complicated by hyperkalemia and metabolic lactic acidosis. Patient received WITH IV fluid resuscitation, bicarbonate. Patient was started on pressors. Patient was also started on IV Zosyn. Blood
cultures were negative. Tracheal aspirate was sent to lab. Urine culture was negative. Influenza COVID was negative. HIV was nonreactive. Patient underwent echocardiogram which showed severe aortic regurgitation [place] with possible vegetation.
Infectious disease and cardiology was consulted. There was also concern for right ventricular thrombus and started on heparin. Blood culture swab repeat check. Patient with significant anasarca and IV fluid was discontinued. Patient received IV
Lasix. Patient creatinine continued to worsen. Patient with persistent and shock which is likely secondary to septic. Patient with worsening creatinine, metabolic acidosis, lactic acidosis. Patient was released from the [facility]. Patient's sister
was contacted. Sister with permission of present change CODE STATUS to DNR. Sister stated patient did not want any aggressive medical management. Sister visited patient at bedside and made decision to make patient comfort care with terminal
extubation. Patient on 02/25/25 at 205.
Discharge Plan
-
Patient Disposition:
Date/Time
Date/Time: 02/25/25 20:51
Discharge Date and Time
Discharge Date/Time: 02/25/25 20:51
Print Language: NAMIBIAN
[2025-02-26 22:35] LABS: HCV Quant by NAAT IU/mL 49400 IU/mL; HCV Quant by NAAT Interp Detected (Not Detected); HCV Quant by NAAT Log IU/mL 4.69 log IU/mL
== END 2025-02-25 20:51 | disposition expired | DRG 871 ==
LOC: ICU 02:57
PROVIDERS: Internal Medicine; Internal Medicine Critical Care Medicine; Nurse Practitioner Family; Nurse Practitioner Primary Care; Physician Assistant; Physician Assistant Medical; Specialist; ADMITTING PHYSICIAN Hospitalist; ATTENDING PHYSICIAN Hospitalist; CONSULT PHYSICIAN Internal Medicine; CONSULT PHYSICIAN Internal Medicine Cardiovascular Disease; CONSULT PHYSICIAN Internal Medicine Nephrology; CONSULT PHYSICIAN Student in an Organized Health Care Education/Training Program; EMERGENCY PHYSICIAN Emergency Medicine; OTHER PHYSICIAN Internal Medicine
PROC: 5A1945Z Respiratory Ventilation, 24-96 Consecutive Hours (ICD-10-PCS; 2025-02-22)
PROC: 02HV33Z Insertion of Infusion Device into Superior Vena Cava, Percutaneous Approach (ICD-10-PCS; 2025-02-22)
PROC: 0BH17EZ Insertion of Endotracheal Airway into Trachea, Via Natural or Artificial Opening (ICD-10-PCS; 2025-02-22)
PROC: 0W9G3ZX Drainage of Peritoneal Cavity, Percutaneous Approach, Diagnostic (ICD-10-PCS; 2025-02-22)
PROC: 4A133B1 Monitoring of Arterial Pressure, Peripheral, Percutaneous Approach (ICD-10-PCS; 2025-02-23)
DX: A41.89 Other specified sepsis (principal); G92.8 Other toxic encephalopathy; K76.7 Hepatorenal syndrome; J18.9 Pneumonia, unspecified organism; G93.41 Metabolic encephalopathy; R65.21 Severe sepsis with septic shock; J96.00 Acute respiratory failure, unspecified whether with hypoxia or hypercapnia; K72.00 Acute and subacute hepatic failure without coma; I33.0 Acute and subacute infective endocarditis; R18.8 Other ascites; J90 Pleural effusion, not elsewhere classified; J98.11 Atelectasis; N17.9 Acute kidney failure, unspecified; E87.21 Acute metabolic acidosis; I5A Non-ischemic myocardial injury (non-traumatic); Z51.5 Encounter for palliative care; Z66 Do not resuscitate; E87.70 Fluid overload, unspecified; K74.60 Unspecified cirrhosis of liver; K40.90 Unilateral inguinal hernia, without obstruction or gangrene, not specified as recurrent; B19.20 Unspecified viral hepatitis C without hepatic coma; F11.10 Opioid abuse, uncomplicated; E87.5 Hyperkalemia; Z91.199 Patient's noncompliance with other medical treatment and regimen due to unspecified reason; Z87.891 Personal history of nicotine dependence
CPT/HCPCS: 88305; 36600; 71045; 74176; 76700; 80048; 80053; 80061; 80306; 81003; 81015; 82042; 82140; 82248; 82550; 82728; 82805; 82962; 83036; 83516; 83540; 83550; 83605; 83615; 83735; 83880; 84100; 84132; 84145; 84157; 84300; 84439; 84443; 84478; 84484; 85025; 85027; 85610; 85730; 86038; 86060; 86063; 86160; 86704; 86705; 86706; 86708; 86709; 86803; 87015; 87040; 87070; 87086; 87147; 87205; 87340; 87389; 87449; 87502; 87522; 87811; 87899; 88112; 89051; 93005; 93306; 94002; 94003; 96361; 96365; 96366; 96367; 99291